=== PATIENT | male | born 1935 | race Caucasian/White ===

== ENCOUNTER 2018-06-24 11:36 | Emergency (ER) | payer OTHER ==
[2018-06-24 12:46] VITALS: TEMP 98.1; BMI 24.5
[2018-06-24] MEDS ORDERED: SODIUM CHLORIDE 1,000 ML IV STA (13:18)
[2018-06-24 14:00] LABS: BASO % 0.5 % (0-2.0); EOS % 2.8 % (0-4.5); HEMOGLOBIN 14.8 GM/dL (11.7-16.9); LYMPH % 11.9 % (8-40); MCH 34.7 pg (25.7-33.7); MCHC 34.4 g/dl (32.0-35.9); MEAN CELL VOLUME 100.7 fl (80-96); MEAN PLT VOLUME 7.7 fl (7.5-11.1); MONO % 8.4 % (3.8-10.2); NEUT % 76.4 % (42.8-82.8); PLATELET COUNT 475 K/MM3 (134-434); RBC 4.27 M/mm3 (4.00-5.60); RDW 13.5 % (11.9-15.9); WHITE BLOOD COUNT 12.8 K/mm3 (4.0-10.0)
[2018-06-24 14:24] LABS: URINE APPEARANCE CLOUDY; URINE BILIRUBIN NEGATIVE (<2.0 mg/dL); URINE COLOR YELLOW; URINE GLUCOSE (UA) NEGATIVE (NEGATIVE); URINE KETONE NEGATIVE (NEGATIVE); URINE LEUK ESTERASE 3+ (NEGATIVE); URINE NITRITE NEGATIVE (NEGATIVE); URINE PROTEIN 2+ (NEGATIVE); URINE UROBILINOGEN NEGATIVE mg/dL (0.2-1.0)
[2018-06-24 15:12] LABS: ANION GAP 6 MMOL/L (8-16); BLOOD UREA NITROGEN 14 mg/dL (7-18); CHLORIDE 104 mmol/L (98-107); CO2 28 mmol/L (21-32); CREATININE 0.8 mg/dL (0.55-1.3); GLUCOSE,RANDOM 73 mg/dL (74-106); POTASSIUM 4.9 mmol/L (3.5-5.1); SODIUM 139 mmol/L (136-145)
--- NOTE | 2018-06-24 15:12 | PDOC ---
History of Present Illness - General Chief Complaint: Hematuria Stated Complaint: BLOOD IN URINE Time Seen by Provider: 06/24/18 12:27 History Source: Patient Exam Limitations: Language Barrier - History of Present Illness Initial Comments: 82 y/o M hx of stomach cancer (several years ago, treated with chemo and surgery , in remission), cholecystectomy (several years ago), HTN presents with hematuria he noted today along with very mild RLQ abdominal discomfort. Denies fever, chills, sob, cp, n/v/d, dysuria, difficulty urinating, urinary urgency/ frequency. 06/24/18 15:07 Past History - Past Medical History Allergies/Adverse Reactions: Allergies Allergy/AdvReac Type Severity Reaction Status Date / Time No Known Allergies Allergy Verified 06/24/18 12:22 Home Medications: Ambulatory Orders Aspirin Coated [Ecotrin -] 81 mg PO DAILY 03/31/14 Lisinopril [Prinivil -] 30 mg PO DAILY 03/31/14 levoFLOXacin [Levaquin] 750 mg PO DAILY #5 tab 06/24/18 Cancer: Yes (STOMACH) Cardiac Disorders: Yes COPD: No CHF: No HTN: Yes - Surgical History Cholecystectomy: Yes - Immunization History Immunization Up to Date: Yes - Suicide/Smoking/Psychosocial Hx Smoking Status: No Smoking History: Never smoked Have you smoked in the past 12 months: No Number of Cigarettes Smoked Daily: 0 If you are a former smoker, when did you quit?: 30 YEARS Information on smoking cessation initiated: No Hx Alcohol Use: Yes (daily glass of wine) Drug/Substance Use Hx: No Substance Use Type: None Review of Systems - Review of Systems Comments:: See HPI 06/24/18 15:10 *Physical Exam - Vital Signs Last Vital Signs Temp Pulse Resp BP Pulse Ox 98.1 F 77 18 155/71 100 06/24/18 11:36 06/24/18 11:36 06/24/18 11:36 06/24/18 11:36 06/24/18 11:36 - Physical Exam General Appearance: No: Apparent Distress Respiratory/Chest: positive: Lungs Clear, Normal Breath Sounds. negative: Respiratory Distress Cardiovascular: positive: Regular Rhythm, Regular Rate, S1, S2. negative: Murmur Gastrointestinal/Abdominal: positive: Normal Bowel Sounds, Soft. negative: Tender, Distended, Guarding, Rebound, Mass Musculoskeletal: negative: CVA Tenderness Integumentary: positive: Normal Color Neurologic: positive: Fully Oriented, Alert, Normal Mood/Affect ED Treatment Course - LABORATORY CBC & Chemistry Diagram: 06/24/18 13:40 06/24/18 13:40 - ADDITIONAL ORDERS Additional order review: Laboratory Results 06/24/18 13:40 Urine Color Yellow Urine Appearance Cloudy Urine pH 6.0 Ur Specific [place] 1.012 Urine Protein 2+ H Urine Glucose (UA) Negative Urine Ketones Negative Urine Blood 3+ H Urine Nitrite Negative Urine Bilirubin Negative Urine Urobilinogen Negative Ur Leukocyte Esterase 3+ H 06/24/18 13:40 RBC 4.27 MCV 100.7 H MCHC 34.4 RDW 13.5 MPV 7.7 D Neutrophils % 76.4 D Lymphocytes % 11.9 D Monocytes % 8.4 Eosinophils % 2.8 Basophils % 0.5 - Medications Given in the ED: ED Medications Discontinued Medications Generic Name Dose Route Start Last Admin Trade Name Freq PRN Reason Stop Dose Admin Sodium Chloride 1,000 mls @ 1,000 mls/hr 06/24/18 13:18 06/24/18 14:21 Normal Saline - IV 06/24/18 14:17 1,000 mls/hr ASDIR STA Administration Medical Decision Making - Medical Decision Making 82 y/o M hx of stomach CA, cholecystectomy, HTN presents with hematuria x 1 day. Consider UTI; also consider bladder CA given painless hematuria. Less suspicious for kidney stones given how comfortable patient appears and with no CVA tenderness. Unlikely pyelo with no fever. Of note, patient was seen 05/2014 for hematuria as well; at that time, he was diagnosed with UTI and treated with Cipro. UCx, however, was negative. Plan: CBC, BMP, UA, UCX, possible uro consult 06/24/18 15:10 Labs with mild leukocytosis of 12.8 UA shows 3+ leuks, 3+ blood Discussed with urology, Dr. Ruiz, who recommended dose of IV abx for now and discharging on Levaquin with outpatient urology follow-up No current indications for CBI given patient with no difficulty voiding and not distended Will give patient dose of IV Ceftriaxone and refer patient to Dr. Ruiz New rx: Levaquin 06/24/18 15:37 *DC/Admit/Observation/Transfer Diagnosis at time of Disposition: Hematuria - Discharge Dispostion Disposition: HOME Condition at time of disposition: Good Decision to Admit order: No - Prescriptions Prescriptions: levoFLOXacin [Levaquin] 750 mg PO DAILY #5 tab - Referrals Referrals: Delon Schmid MD [Primary Care Provider] - 3 days Jon Ruiz MD., MD [Staff Physician] - 3 days - Patient Instructions Printed Discharge Instructions: DI for Hematuria Additional Instructions: Thank you for choosing [facility]. It was a pleasure taking care of you. You were seen here for blood in the urine We are starting you on an antibiotic, Levaquin, in case this is due to possible infection However, you will need further work-up on the cause of the blood in your urine, for which you were referred to the urologist Dr. Ruiz Return to the Emergency Department if your symptoms worsen or persist, you have fever, shortness of breath, chest pain, severe abdominal pain, vomiting, abdomen becomes very distended, have difficulty producing urine or are no longer producing urine or other concerning symptoms. - Post Discharge Activity
[2018-06-24] MEDS ORDERED: CEFTRIAXONE 1,000 MG in DEXTROSE 5%-WATER - 50 ML IVPB ONE (15:28)
[2018-06-24 15:50] VITALS: BP 159/83; PULSE 84
[2018-06-24] MEDS ORDERED: CEFTRIAXONE 1 GM/50 ML BAG ONE (15:54)
== END 2018-06-24 16:05 | disposition home or self-care (01) ==
LOC: JER 11:36
PROC: 3E0337Z Introduction of Electrolytic and Water Balance Substance into Peripheral Vein, Percutaneous Approach (ICD-10-PCS; principal; 2018-06-24)
PROC: 3E03329 Introduction of Other Anti-infective into Peripheral Vein, Percutaneous Approach (ICD-10-PCS; 2018-06-24)
DX: R31.9 Hematuria, unspecified (principal); Z85.028 Personal history of other malignant neoplasm of stomach
CPT/HCPCS: 36415; 80048; 81003; 81015; 85025; 87077; 87086; 96361; 96365; 99282-25; J7030

== ENCOUNTER 2021-07-29 10:07 | Inpatient (IN) | payer OTHER ==
[2021-07-29] MEDS ORDERED: SODIUM CHLORIDE 1,905 ML IV ONE (11:12)
[2021-07-29] MEDS ORDERED: ACETAMINOPHEN 1000 MG/100 ML BAG IVPB ONE (11:15)
[2021-07-29] MEDS ORDERED: PIPERACILLIN/TAZOB 4.5 GM 4.5 GM in DEXTROSE 5%-WATER - 100 ML IVPB ONE (11:15)
[2021-07-29] MEDS ORDERED: VANCOMYCIN 1,000 MG in DEXTROSE 5%-WATER - 250 ML IVPB ONE (11:15)
[2021-07-29] MEDS ORDERED: SODIUM CHLORIDE 0.9% 1000 ML INFUS.BAG IV ONE (12:01)
[2021-07-29] MEDS ORDERED: ACETAMINOPHEN INJECTION 100 ML IVPB ONE (12:12)
[2021-07-29] MEDS ORDERED: VANCOMYCIN 500 MG VIAL (RESTRICTED TO ID ONLY) ONE (12:12)
[2021-07-29 12:41] LABS: MCH 33.3 pg (25.7-33.7); MCHC 34.4 g/dl (32.0-35.9); MEAN CELL VOLUME 96.9 fl (80-96); MEAN PLT VOLUME 7.4 fl (7.5-11.1); PLATELET COUNT 377 10^3/uL (134-434); RBC 3.61 M/mm3 (4.00-5.60); RDW 13.3 % (11.9-15.9); WHITE BLOOD COUNT 24.5 K/mm3 (4.0-10.0)
[2021-07-29 12:53] LABS: INR 1.2 (0.83-1.09); PROTHROMBIN TIME (PATIENT) 13.5 SEC (9.7-13.0)
[2021-07-29 12:56] LABS: ACTIVATED PTT 22.7 SECONDS (25.2-36.5)
[2021-07-29 13:06] LABS: ANISOCYTOSIS 0; HELMET CELLS 0; HOWELL-JOLLY BODIES 0; MACROCYTOSIS 0; OVALOCYTE 0; PLATELET ESTIMATE NORMAL; ROULEAU 0; SICKELED CELLS 0; TARGET CELLS 0; TEAR DROP CELLS 0; TOXIC GRANULATION 0
[2021-07-29 13:07] LABS: CHLORIDE 104 mmol/L (98-107); SODIUM 136 mmol/L (136-145)
[2021-07-29 13:09] LABS: CALCIUM 8.7 mg/dL (8.5-10.1)
[2021-07-29 13:10] LABS: ANION GAP 4 MMOL/L (8-16); BLOOD UREA NITROGEN 13.8 mg/dL (7-18); CO2 28 mmol/L (21-32); GLUCOSE,RANDOM 116 mg/dL (74-106)
[2021-07-29 13:12] LABS: CREATININE 1.1 mg/dL (0.55-1.3); SGOT/AST 16 U/L (15-37); SGPT/ALT 17 U/L (13-61)
[2021-07-29 13:14] LABS: BILIRUBIN,TOTAL 0.8 mg/dL (0.2-1); TOT PROT 6.3 g/dl (6.4-8.2)
[2021-07-29 13:16] LABS: ALK PHOS 95 U/L (45-117)
[2021-07-29 13:20] LABS: ALBUMIN 3.2 g/dl (3.4-5.0)
[2021-07-29] MEDS ORDERED: PIPERACILLIN/TAZOB 4.5 GM 4.5 GM/100 ML BAG IVPB ONE (13:36)
[2021-07-29 15:21] LABS: EPI CELLS 15 /uL (0-25.1); HYALINE CASTS 4 /uL (0-3.1); PH,URINE 5.5 (5.0-8.0); URINE APPEARANCE CLOUDY; URINE BACTERIA 3229 /uL (0-1359); URINE BILIRUBIN NEGATIVE (NEGATIVE); URINE COLOR YELLOW; URINE GLUCOSE (UA) NEGATIVE (NEGATIVE); URINE KETONE NEGATIVE (NEGATIVE); URINE LEUK ESTERASE 3+ (NEGATIVE); URINE NITRITE NEGATIVE (NEGATIVE); URINE PROTEIN 1+ (NEGATIVE); URINE RBC 50 /uL (0-23.9); URINE UROBILINOGEN 0.2 mg/dL (0.2-1.0); URINE WBC 675 /uL (0-25.8)
[2021-07-29] MEDS ORDERED: LIDOCAINE HCL 2% JELLY 10 ML CARTRIDGE ONE (17:43)
[2021-07-29] MEDS ORDERED: PIPERACILLIN/TAZOB 4.5 GM 4.5 GM in DEXTROSE 5%-WATER 100 ML IVPB SCH (18:00)
[2021-07-29] MEDS: TAMSULOSIN HCL 0.4 MG CAP PO SCH (21:33)
[2021-07-30 00:04] VITALS: BMI 24.7
[2021-07-30] MEDS ORDERED: PIPERACILLIN/TAZOBACTAM 4.5 GM VIAL IVPB ONE ×2 (02:28→13:59)
[2021-07-30] MEDS ORDERED: DEXTROSE 5%-WATER 100 ML IVPB ONE ×3 (02:28→21:20)
[2021-07-30] MEDS ORDERED: LISINOPRIL PO SCH (10:00)
[2021-07-30] MEDS ORDERED: LISINOPRIL 20 MG TABLET PO SCH (10:00)
[2021-07-30] MEDS ORDERED: PIPERACILLIN/TAZOB 4.5 GM 4.5 GM in DEXTROSE 5%-WATER 100 ML IVPB SCH (10:00)
[2021-07-30 10:14] LABS: BASO % 0.4 % (0-2.0); EOS % 0.2 % (0-4.5); HEMATOCRIT 35.4 % (35.4-49); HEMOGLOBIN 12.2 GM/dL (11.7-16.9); LYMPH % 8.4 % (8-40); MCH 33.4 pg (25.7-33.7); MCHC 34.4 g/dl (32.0-35.9); MEAN PLT VOLUME 7.4 fl (7.5-11.1); MONO % 7.4 % (3.8-10.2); NEUT % 83.6 % (42.8-82.8); PLATELET COUNT 369 10^3/uL (134-434); RBC 3.65 M/mm3 (4.00-5.60); RDW 12.8 % (11.9-15.9)
[2021-07-30 10:37] LABS: CALCIUM 8.6 mg/dL (8.5-10.1)
[2021-07-30 10:38] LABS: BLOOD UREA NITROGEN 10.8 mg/dL (7-18)
[2021-07-30 10:40] LABS: BILIRUBIN,TOTAL 0.7 mg/dL (0.2-1); TOT PROT 5.8 g/dl (6.4-8.2)
[2021-07-30] MEDS: ENOXAPARIN NA (PORCINE) 40 MG/0.4 ML DISP.SYRIN SQ SCH (10:46)
[2021-07-30] MEDS: TAMSULOSIN HCL 0.4 MG CAP PO SCH ×2 (10:46→21:43)
[2021-07-30] MEDS: ASPIRIN COATED 81 MG TABLET.EC PO SCH (10:46)
[2021-07-30 10:49] LABS: ALBUMIN 2.9 g/dl (3.4-5.0)
[2021-07-30] MEDS ORDERED: PIPERACILLIN/TAZOB 4.5 GM 4.5 GM in DEXTROSE 5%-WATER 100 ML IVPB ONE (11:35)
[2021-07-30] MEDS: FINASTERIDE 5 MG TABLET (FP) PO SCH (14:03)
[2021-07-30] MEDS ORDERED: PIPERACILLIN/TAZOB 3.375 GM 3.375 GM in DEXTROSE 5%-WATER - 50 ML IVPB SCH (18:00)
[2021-07-30] MEDS ORDERED: PIPERACILLIN/TAZOBACTAM 3.375 GM VIAL IVPB ONE (18:02)
[2021-07-30] MEDS ORDERED: DEXTROSE 5%-WATER - 50 ML IVPB ONE (18:02)
[2021-07-30] MEDS: CEFTRIAXONE 2 GM in DEXTROSE 5%-WATER 2 GM/100 ML BAG IVPB SCH (21:44)
[2021-07-31] MEDS ORDERED: MELATONIN 1 MG TABLET PO ONE ×2 (00:55→05:45)
[2021-07-31] MEDS ORDERED: LORazepam 2 MG/ML SDV VIAL ONE (01:14)
[2021-07-31] MEDS ORDERED: LORazepam 2 MG/ML SDV VIAL IVPUSH ONE (01:34)
[2021-07-31] MEDS ORDERED: DEXTROSE 5%-WATER 100 ML IVPB ONE (09:41)
[2021-07-31] MEDS: TAMSULOSIN HCL 0.4 MG CAP PO SCH ×2 (09:43→21:24)
[2021-07-31] MEDS: ASPIRIN COATED 81 MG TABLET.EC PO SCH (09:43)
[2021-07-31] MEDS: ENOXAPARIN NA (PORCINE) 40 MG/0.4 ML DISP.SYRIN SQ SCH (09:43)
[2021-07-31] MEDS: CEFTRIAXONE 2 GM in DEXTROSE 5%-WATER 2 GM/100 ML BAG IVPB SCH (09:43)
[2021-07-31] MEDS: FINASTERIDE 5 MG TABLET (FP) PO SCH (09:43)
[2021-07-31] MEDS: LISINOPRIL 5 MG TABLET PO SCH (09:44)
[2021-08-01] MEDS: LORazepam 2 MG/ML SDV VIAL IVPUSH PRN ×2 (00:22→17:19)
[2021-08-01 10:27] LABS: BASO % 0.1 % (0-2.0); EOS % 0.1 % (0-4.5); HEMATOCRIT 38.3 % (35.4-49); HEMOGLOBIN 12.5 GM/dL (11.7-16.9); LYMPH % 8.7 % (8-40); MCH 31.7 pg (25.7-33.7); MCHC 32.7 g/dl (32.0-35.9); MEAN CELL VOLUME 97.2 fl (80-96); MEAN PLT VOLUME 7.8 fl (7.5-11.1); MONO % 9.9 % (3.8-10.2); NEUT % 81.2 % (42.8-82.8); PLATELET COUNT 400 10^3/uL (134-434); RBC 3.95 M/mm3 (4.00-5.60); WHITE BLOOD COUNT 14.1 K/mm3 (4.0-10.0)
[2021-08-01] MEDS ORDERED: DEXTROSE 5%-WATER - 50 ML IVPB ONE (10:41)
[2021-08-01] MEDS ORDERED: cefTRIAXone SODIUM 1 GM VIAL ONE (10:41)
[2021-08-01 10:42] LABS: ALBUMIN 2.6 g/dl (3.4-5.0); BLOOD UREA NITROGEN 12.6 mg/dL (7-18); CALCIUM 8.6 mg/dL (8.5-10.1)
[2021-08-01 10:45] LABS: CREATININE 0.8 mg/dL (0.55-1.3)
[2021-08-01 10:48] LABS: BILIRUBIN,TOTAL 0.5 mg/dL (0.2-1); TOT PROT 6.2 g/dl (6.4-8.2)
[2021-08-01] MEDS: FINASTERIDE 5 MG TABLET (FP) PO SCH (10:51)
[2021-08-01] MEDS: CEFTRIAXONE 1 GM in DEXTROSE 5%-WATER - 50 ML IVPB SCH (10:51)
[2021-08-01] MEDS: LISINOPRIL 5 MG TABLET PO SCH (10:51)
[2021-08-01] MEDS: ASPIRIN COATED 81 MG TABLET.EC PO SCH (10:51)
[2021-08-01] MEDS: ENOXAPARIN NA (PORCINE) 40 MG/0.4 ML DISP.SYRIN SQ SCH (10:52)
[2021-08-01] MEDS: TAMSULOSIN HCL 0.4 MG CAP PO SCH ×2 (10:52→21:08)
[2021-08-02] MEDS: LORazepam 2 MG/ML SDV VIAL IVPUSH PRN ×2 (05:14→18:17)
[2021-08-02] MEDS ORDERED: DEXTROSE 5%-WATER - 50 ML IVPB ONE (09:09)
[2021-08-02] MEDS ORDERED: cefTRIAXone SODIUM 1 GM VIAL ONE (09:09)
[2021-08-02] MEDS: CEFTRIAXONE 1 GM in DEXTROSE 5%-WATER - 50 ML IVPB SCH (09:17)
[2021-08-02] MEDS: ACETAMINOPHEN 325 MG TABLET (FP) PO PRN (09:18)
[2021-08-02] MEDS: FINASTERIDE 5 MG TABLET (FP) PO SCH (09:19)
[2021-08-02] MEDS: ENOXAPARIN NA (PORCINE) 40 MG/0.4 ML DISP.SYRIN SQ SCH (09:19)
[2021-08-02] MEDS: LISINOPRIL 5 MG TABLET PO SCH (09:19)
[2021-08-02] MEDS: ASPIRIN COATED 81 MG TABLET.EC PO SCH (09:19)
[2021-08-02] MEDS: TAMSULOSIN HCL 0.4 MG CAP PO SCH ×2 (09:19→21:02)
[2021-08-02] MEDS: QUEtiapine FUMARATE 25 MG TABLET PO SCH ×2 (12:36→21:02)
[2021-08-03 09:49] LABS: HEMATOCRIT 37.3 % (35.4-49); HEMOGLOBIN 12.5 GM/dL (11.7-16.9); MCH 32.4 pg (25.7-33.7); MCHC 33.5 g/dl (32.0-35.9); MEAN CELL VOLUME 96.8 fl (80-96); MEAN PLT VOLUME 7.6 fl (7.5-11.1); PLATELET COUNT 444 10^3/uL (134-434); RBC 3.86 M/mm3 (4.00-5.60); WHITE BLOOD COUNT 12.7 K/mm3 (4.0-10.0)
[2021-08-03] MEDS ORDERED: cefTRIAXone SODIUM 1 GM VIAL ONE (09:54)
[2021-08-03] MEDS ORDERED: DEXTROSE 5%-WATER - 50 ML IVPB ONE (09:55)
[2021-08-03] MEDS: ENOXAPARIN NA (PORCINE) 40 MG/0.4 ML DISP.SYRIN SQ SCH (09:59)
[2021-08-03] MEDS: CEFTRIAXONE 1 GM in DEXTROSE 5%-WATER - 50 ML IVPB SCH (09:59)
[2021-08-03] MEDS: FINASTERIDE 5 MG TABLET (FP) PO SCH (10:00)
[2021-08-03] MEDS: TAMSULOSIN HCL 0.4 MG CAP PO SCH ×2 (10:00→21:54)
[2021-08-03] MEDS: ASPIRIN COATED 81 MG TABLET.EC PO SCH (10:00)
[2021-08-03] MEDS: LISINOPRIL 5 MG TABLET PO SCH (10:00)
[2021-08-03] MEDS: QUEtiapine FUMARATE 25 MG TABLET PO SCH ×2 (10:00→21:54)
[2021-08-04] MEDS: ENOXAPARIN NA (PORCINE) 40 MG/0.4 ML DISP.SYRIN SQ SCH (09:05)
[2021-08-04] MEDS: LISINOPRIL 5 MG TABLET PO SCH (09:05)
[2021-08-04] MEDS: FINASTERIDE 5 MG TABLET (FP) PO SCH (09:05)
[2021-08-04] MEDS: QUEtiapine FUMARATE 25 MG TABLET PO SCH ×2 (09:05→21:11)
[2021-08-04] MEDS: TAMSULOSIN HCL 0.4 MG CAP PO SCH ×2 (09:05→21:11)
[2021-08-04] MEDS: ASPIRIN COATED 81 MG TABLET.EC PO SCH (09:05)
[2021-08-04] MEDS ORDERED: cefTRIAXone SODIUM 1 GM VIAL ONE ×2 (09:06→09:33)
[2021-08-04] MEDS ORDERED: DEXTROSE 5%-WATER - 50 ML IVPB ONE ×2 (09:07→09:33)
[2021-08-04] MEDS: CEFTRIAXONE 1 GM in DEXTROSE 5%-WATER - 50 ML IVPB SCH (09:08)
[2021-08-04 11:31] LABS: BASO % 0.4 % (0-2.0); HEMATOCRIT 36.3 % (35.4-49); LYMPH % 9.7 % (8-40); MCH 31.9 pg (25.7-33.7); MEAN CELL VOLUME 96.6 fl (80-96); MEAN PLT VOLUME 7.4 fl (7.5-11.1); MONO % 10.6 % (3.8-10.2); NEUT % 78.3 % (42.8-82.8); PLATELET COUNT 483 10^3/uL (134-434); RBC 3.76 M/mm3 (4.00-5.60); WHITE BLOOD COUNT 12.9 K/mm3 (4.0-10.0)
[2021-08-04 11:55] LABS: CALCIUM 8.5 mg/dL (8.5-10.1)
[2021-08-04 11:56] LABS: ALBUMIN 2.5 g/dl (3.4-5.0); BLOOD UREA NITROGEN 16.5 mg/dL (7-18)
[2021-08-04 12:01] LABS: BILIRUBIN,TOTAL 0.7 mg/dL (0.2-1)
[2021-08-04] MEDS: ACETAMINOPHEN 325 MG TABLET (FP) PO PRN ×2 (13:15→21:46)
[2021-08-04] MEDS: CEPHALEXIN MONOHYDRATE 500 MG CAPSULE (UD) PO SCH (21:11)
[2021-08-05] MEDS ORDERED: PT OWN MED DRAWER 7, Y5N ONE (08:06)
[2021-08-05] MEDS: ENOXAPARIN NA (PORCINE) 40 MG/0.4 ML DISP.SYRIN SQ SCH (10:57)
[2021-08-05] MEDS: ASPIRIN COATED 81 MG TABLET.EC PO SCH (10:57)
[2021-08-05] MEDS: TAMSULOSIN HCL 0.4 MG CAP PO SCH ×3 (10:57→21:03)
[2021-08-05] MEDS: CEPHALEXIN MONOHYDRATE 500 MG CAPSULE (UD) PO SCH ×3 (10:57→21:03)
[2021-08-05] MEDS: QUEtiapine FUMARATE 25 MG TABLET PO SCH ×3 (10:58→21:03)
[2021-08-05] MEDS: ACETAMINOPHEN 325 MG TABLET (FP) PO PRN ×2 (10:58→20:48)
[2021-08-05] MEDS: LISINOPRIL 5 MG TABLET PO SCH (10:58)
[2021-08-05] MEDS: FINASTERIDE 5 MG TABLET (FP) PO SCH (10:58)
[2021-08-05] MEDS: valACYclovir HCL 500 MG TABLET (FP) PO SCH ×3 (14:56→21:03)
[2021-08-06] MEDS ORDERED: LORazepam 2 MG/ML SDV VIAL IM ONE (02:28)
[2021-08-06] MEDS: CEPHALEXIN MONOHYDRATE 500 MG CAPSULE (UD) PO SCH ×2 (08:41→09:32)
[2021-08-06] MEDS: TAMSULOSIN HCL 0.4 MG CAP PO SCH ×2 (08:42→09:32)
[2021-08-06] MEDS: ASPIRIN COATED 81 MG TABLET.EC PO SCH ×2 (08:42→09:31)
[2021-08-06] MEDS: QUEtiapine FUMARATE 25 MG TABLET PO SCH ×2 (08:42→09:32)
[2021-08-06] MEDS: ACETAMINOPHEN 325 MG TABLET (FP) PO PRN (08:42)
[2021-08-06] MEDS: ENOXAPARIN NA (PORCINE) 40 MG/0.4 ML DISP.SYRIN SQ SCH ×2 (08:42→09:32)
[2021-08-06] MEDS: LISINOPRIL 5 MG TABLET PO SCH ×2 (08:42→09:32)
[2021-08-06] MEDS: FINASTERIDE 5 MG TABLET (FP) PO SCH ×2 (08:42→09:32)
[2021-08-06] MEDS: valACYclovir HCL 500 MG TABLET (FP) PO SCH ×2 (08:42→09:32)
[2021-08-06 11:04] VITALS: BP 112/65; PULSE 95; TEMP 97.5
== END 2021-08-06 16:31 | disposition home or self-care (01) | DRG 871 ==
LOC: JER 10:07 → JERBED 11:15 → J6S 18:52
PROVIDERS: ADMIT Internal Medicine; ATTEND Internal Medicine
DX: A41.89 Other specified sepsis (principal); G93.41 Metabolic encephalopathy; N20.1 Calculus of ureter; N39.0 Urinary tract infection, site not specified; I45.10 Unspecified right bundle-branch block; R65.20 Severe sepsis without septic shock; I10 Essential (primary) hypertension; D72.829 Elevated white blood cell count, unspecified; N40.1 Benign prostatic hyperplasia with lower urinary tract symptoms; R33.8 Other retention of urine; N35.919 Unspecified urethral stricture, male, unspecified site; Z85.028 Personal history of other malignant neoplasm of stomach
CPT/HCPCS: 36415; 71045-TC-FY; 73030-TC-LT-FY; 74177-TC; 80053; 81003; 83605; 84484; 85025; 85027; 85610; 85730; 87040; 87086; 87804; 93005; 93010; 97116-GP; 97162-GP; 99285-25; C9803-CS; Q9967; U0003; U0005

== ENCOUNTER 2022-12-21 15:44 | Emergency (ER) | payer OTHER ==
[2022-12-21 16:09] VITALS: TEMP 98.6; BMI 22.8
[2022-12-21] MEDS ORDERED: IBUPROFEN 400 MG TABLET (FP) PO ONE (18:16)
[2022-12-21 18:29] LABS: BASO % 0.4 % (0-2.0); HEMATOCRIT 37.8 % (35.4-49); HEMOGLOBIN 12.7 GM/dL (11.7-16.9); LYMPH % 15.2 % (8-40); MCH 32.4 pg (25.7-33.7); MCHC 33.6 g/dl (32.0-35.9); MEAN CELL VOLUME 96.4 fl (80-96); MONO % 7.3 % (3.8-10.2); NEUT % 77.1 % (42.8-82.8); PLATELET COUNT 442 10^3/uL (134-434); RBC 3.92 M/mm3 (4.00-5.60); RDW 13.2 % (11.9-15.9); WHITE BLOOD COUNT 13.2 K/mm3 (4.0-10.0)
[2022-12-21 19:01] LABS: POTASSIUM 4.5 mmol/L (3.5-5.1)
[2022-12-21 19:03] LABS: ALBUMIN 2.1 g/dl (3.4-5.0); BLOOD UREA NITROGEN 8.4 mg/dL (7-18); CALCIUM 8.1 mg/dL (8.5-10.1)
[2022-12-21 19:06] LABS: CREATININE 0.9 mg/dL (0.55-1.3)
[2022-12-21 19:09] LABS: BILIRUBIN,TOTAL 0.4 mg/dL (0.2-1); TOT PROT 5.7 g/dl (6.4-8.2)
[2022-12-21] MEDS ORDERED: AZITHROMYCIN 250 MG TABLET PO ONE (19:36)
[2022-12-21] MEDS ORDERED: AZITHROMYCIN 500 MG TABLET ONE (19:38)
[2022-12-21 19:46] VITALS: BP 144/78; PULSE 72; RESP 18
== END 2022-12-21 19:46 | disposition home or self-care (01) ==
LOC: JER 15:44
DX: R51.9 Headache, unspecified (principal); R91.8 Other nonspecific abnormal finding of lung field; J18.1 Lobar pneumonia, unspecified organism; I31.39 Other pericardial effusion (noninflammatory); W01.0XXA Fall on same level from slipping, tripping and stumbling without subsequent striking against object, initial encounter; Y93.01 Activity, walking, marching and hiking; Y92.480 Sidewalk as the place of occurrence of the external cause; Z20.822 Contact with and (suspected) exposure to COVID-19
CPT/HCPCS: 0241U-QW; 36415; 70450-TC; 70486-TC; 71045-TC-FY; 71250-TC; 72125-TC; 80053; 85025; 99285-25

== ENCOUNTER 2023-03-29 15:34 | Emergency (ER) | payer OTHER ==
[2023-03-29 15:51] VITALS: BP 121/58; PULSE 85; RESP 18; TEMP 99.6; BMI 24.7
[2023-03-29 17:37] LABS: BASO % 0.5 % (0-2.0); EOS % 0.4 % (0-4.5); HEMATOCRIT 37.4 % (35.4-49); HEMOGLOBIN 12.6 GM/dL (11.7-16.9); MCH 32.7 pg (25.7-33.7); MCHC 33.6 g/dl (32.0-35.9); MEAN CELL VOLUME 97.3 fl (80-96); MEAN PLT VOLUME 7.4 fl (7.5-11.1); NEUT % 78.1 % (42.8-82.8); PLATELET COUNT 467 10^3/uL (134-434); RBC 3.85 M/mm3 (4.00-5.60); RDW 13.6 % (11.9-15.9); WHITE BLOOD COUNT 17.3 K/mm3 (4.0-10.0)
[2023-03-29 17:57] LABS: POTASSIUM 4.9 mmol/L (3.5-5.1)
[2023-03-29 17:59] LABS: CALCIUM 8.6 mg/dL (8.5-10.1)
[2023-03-29 18:00] LABS: ALBUMIN 2.4 g/dl (3.4-5.0); BLOOD UREA NITROGEN 12.1 mg/dL (7-18)
[2023-03-29 18:03] LABS: CREATININE 0.9 mg/dL (0.55-1.3)
[2023-03-29 18:05] LABS: BILIRUBIN,TOTAL 0.3 mg/dL (0.2-1); TOT PROT 6.1 g/dl (6.4-8.2)
[2023-03-29] MEDS ORDERED: AZITHROMYCIN IVPB 500 MG in DEXTROSE 5%-WATER - 250 ML IVPB ONE (18:48)
[2023-03-29] MEDS ORDERED: CEFTRIAXONE 1 GM/50 ML BAG ONE ×2 (18:59→19:36)
[2023-03-29] MEDS ORDERED: AZITHROMYCIN IVPB 500 MG/250 ML BAG IVPB ONE (19:36)
[2023-03-29] MEDS ORDERED: ACETAMINOPHEN 1000 MG/100 ML BAG IVPB ONE (19:54)
[2023-03-29] MEDS ORDERED: ACETAMINOPHEN 500 MG TABLET (FP) PO ONE (20:26)
[2023-03-29] MEDS ORDERED: AZITHROMYCIN 250 MG TABLET PO ONE (20:29)
[2023-03-29] MEDS ORDERED: AZITHROMYCIN 500 MG TABLET ONE (20:36)
[2023-03-29] MEDS ORDERED: ACETAMINOPHEN 325 MG TABLET (FP) ONE (20:36)
== END 2023-03-29 20:59 | disposition home or self-care (01) ==
LOC: JER 15:34
DX: R22.0 Localized swelling, mass and lump, head (principal); R22.41 Localized swelling, mass and lump, right lower limb; R55 Syncope and collapse; R05.9 Cough, unspecified; R50.9 Fever, unspecified; W01.198A Fall on same level from slipping, tripping and stumbling with subsequent striking against other object, initial encounter
CPT/HCPCS: 36415; 70450-TC; 71045-TC-FY; 72125-TC; 73030-TC-LT-FY; 80053; 84484; 85025; 93005; 93010; 99285-25

== ENCOUNTER 2023-08-28 03:12 | Emergency (ER) | payer OTHER ==
[2023-08-28 05:09] VITALS: BP 138/71; PULSE 64; RESP 19; TEMP 97.9
[2023-08-28 05:14] VITALS: BMI 25.6
[2023-08-28 05:22] LABS: EPI CELLS 13 /uL (0-25.1); HYALINE CASTS 2 /uL (0-3.1); PH,URINE 6.5 (5.0-8.0); URINE APPEARANCE TURBID; URINE BACTERIA 426 /uL (0-1359); URINE BILIRUBIN NEGATIVE (NEGATIVE); URINE COLOR YELLOW; URINE GLUCOSE (UA) NEGATIVE (NEGATIVE); URINE KETONE NEGATIVE (NEGATIVE); URINE LEUK ESTERASE 3+ (NEGATIVE); URINE NITRITE NEGATIVE (NEGATIVE); URINE PROTEIN TRACE (NEGATIVE); URINE RBC 56 /uL (0-23.9); URINE WBC 3858 /uL (0-25.8)
[2023-08-28] MEDS ORDERED: SULFAMETHOXAZOLE/TRIMETHOPRIM 800MG/160MG D.S. TABLET PO ONE (05:25)
[2023-08-28 05:36] LABS: BASO % 1.1 % (0-2.0); EOS % 8.1 % (0-4.5); HEMATOCRIT 38.1 % (35.4-49); HEMOGLOBIN 12.7 GM/dL (11.7-16.9); MCHC 33.3 g/dl (32.0-35.9); MEAN PLT VOLUME 6.8 fl (7.5-11.1); MONO % 11.9 % (3.8-10.2); NEUT % 46.9 % (42.8-82.8); PLATELET COUNT 517 10^3/uL (134-434); RBC 3.85 M/mm3 (4.00-5.60); RDW 13.1 % (11.9-15.9); WHITE BLOOD COUNT 12.6 K/mm3 (4.0-10.0)
[2023-08-28] MEDS ORDERED: SULFAMETHOXAZOLE/TRIMETHOPRIM 800MG/160MG D.S. TABLET ONE (05:44)
[2023-08-28 06:00] LABS: POTASSIUM 5.2 mmol/L (3.5-5.1)
[2023-08-28 06:02] LABS: ALBUMIN 2.5 g/dl (3.4-5.0); BLOOD UREA NITROGEN 12.8 mg/dL (7-18); CALCIUM 8.9 mg/dL (8.5-10.1); INR 1.01 (0.83-1.09); PROTHROMBIN TIME (PATIENT) 11.7 SEC (9.7-13.0)
[2023-08-28 06:05] LABS: ACTIVATED PTT 33.2 SECONDS (25.2-36.5)
[2023-08-28 06:07] LABS: BILIRUBIN,TOTAL 0.4 mg/dL (0.2-1); TOT PROT 6.2 g/dl (6.4-8.2)
[2023-08-28 08:08] LABS: YEAST FEW (NEGATIVE)
== END 2023-08-28 07:17 | disposition home or self-care (01) ==
LOC: JER 03:12
DX: M25.551 Pain in right hip (principal); N39.0 Urinary tract infection, site not specified; W18.09XA Striking against other object with subsequent fall, initial encounter; Y92.002 Bathroom of unspecified non-institutional (private) residence as the place of occurrence of the external cause; Y93.01 Activity, walking, marching and hiking
CPT/HCPCS: 36415; 70450-TC; 71045-TC-FY; 72125-TC; 72170-TC-FY; 73552-TC-RT-FY; 80053; 81003; 84484; 85025; 85610; 85730; 93005; 93010; 99285-25

== ENCOUNTER 2024-01-13 15:52 | Observation (INO) | payer OTHER ==
[2024-01-13 17:59] LABS: CHLORIDE 106 mmol/L (98-107); POTASSIUM 4.5 mmol/L (3.5-5.1); SODIUM 136 mmol/L (136-145)
[2024-01-13 18:00] LABS: CALCIUM 8.4 mg/dL (8.5-10.1)
[2024-01-13 18:01] LABS: ANION GAP 5 mmol/L (4-13); BLOOD UREA NITROGEN 12.2 mg/dL (7-18); CO2 24 mmol/L (21-32); GLUCOSE,RANDOM 101 mg/dL (74-106)
[2024-01-13 18:03] LABS: URIC ACID 6.1 mg/dL (2.6-7.2)
[2024-01-13 18:04] LABS: CREATININE 0.9 mg/dL (0.55-1.3)
[2024-01-13 18:05] LABS: BASO % 0.4 % (0-2.0); EOS % 3.7 % (0-4.5); HEMATOCRIT 36.4 % (35.4-49); HEMOGLOBIN 12.2 GM/dL (11.7-16.9); LYMPH % 21.6 % (8-40); MCH 32.9 pg (25.7-33.7); MCHC 33.5 g/dl (32.0-35.9); MEAN CELL VOLUME 98.2 fl (80-96); MEAN PLT VOLUME 6.4 fl (7.5-11.1); MONO % 11.7 % (3.8-10.2); NEUT % 62.6 % (42.8-82.8); PLATELET COUNT 467 10^3/uL (134-434); RBC 3.71 M/mm3 (4.00-5.60); WHITE BLOOD COUNT 15.3 K/mm3 (4.0-10.0)
[2024-01-13] MEDS ORDERED: IBUPROFEN 400 MG TABLET (FP) PO ONE (18:16)
[2024-01-13] MEDS: IBUPROFEN 200 MG TABLET PO ONE (18:22)
[2024-01-13] MEDS ORDERED: PIPERACILLIN/TAZOB 3.375 GM 3.375 GM/50 ML BAG IVPB ONE (18:44)
[2024-01-13] MEDS: PIPERACILLIN/TAZOB 3.375 GM 3.375 GM in DEXTROSE 5%-WATER - 50 ML IVPB ONE (18:53)
[2024-01-13] MEDS ORDERED: VANCOMYCIN 1 GRAM (PRE-DOCKED) 1,000 MG/250 ML BAG IVPB ONE (19:29)
[2024-01-13] MEDS: VANCOMYCIN 1,000 MG in DEXTROSE 5%-WATER - 250 ML IVPB ONE (19:33)
[2024-01-13] MEDS: OLANZapine 2.5 MG TABLET PO ONE (20:22)
[2024-01-14 03:41] VITALS: BMI 24.3
[2024-01-14 05:44] LABS: EPI CELLS 5 /uL (0-25.1); HYALINE CASTS 0 /uL (0-3.1); URINE APPEARANCE CLOUDY; URINE BACTERIA 256 /uL (0-1359); URINE BILIRUBIN NEGATIVE (NEGATIVE); URINE COLOR YELLOW; URINE GLUCOSE (UA) NEGATIVE (NEGATIVE); URINE KETONE NEGATIVE (NEGATIVE); URINE LEUK ESTERASE 3+ (NEGATIVE); URINE NITRITE NEGATIVE (NEGATIVE); URINE PROTEIN 1+ (NEGATIVE); URINE RBC 150 /uL (0-23.9); URINE WBC 2864 /uL (0-25.8)
[2024-01-14 07:38] LABS: YEAST NEGATIVE (NEGATIVE)
[2024-01-14] MEDS: ACETAMINOPHEN 1000 MG/100 ML BAG IVPB PRN (07:54)
[2024-01-14] MEDS: ENOXAPARIN NA (PORCINE) 40 MG/0.4 ML DISP.SYRIN SQ SCH (09:12)
[2024-01-14 09:58] VITALS: BP 152/71; PULSE 86; RESP 20; TEMP 97.8
[2024-01-14] MEDS: CEFTRIAXONE 1 GM in DEXTROSE 5%-WATER - 50 ML IVPB ONE (10:30)
[2024-01-14] MEDS: COLCHICINE 0.6 MG TAB PO ONE (10:30)
[2024-01-14 10:31] LABS: RBC 3.65 M/mm3 (4.00-5.60); WHITE BLOOD COUNT 13.7 K/mm3 (4.0-10.0)
[2024-01-14 10:32] LABS: BASO % 0.3 % (0-2.0); EOS % 4.2 % (0-4.5); HEMATOCRIT 35.4 % (35.4-49); LYMPH % 17.5 % (8-40); MEAN CELL VOLUME 96.9 fl (80-96); MEAN PLT VOLUME 6.7 fl (7.5-11.1); MONO % 10.8 % (3.8-10.2); NEUT % 67.2 % (42.8-82.8); PLATELET COUNT 469 10^3/uL (134-434); RDW 13.2 % (11.9-15.9)
[2024-01-14 10:50] LABS: POTASSIUM 4.4 mmol/L (3.5-5.1)
[2024-01-14 10:54] LABS: BLOOD UREA NITROGEN 11.5 mg/dL (7-18)
[2024-01-14 10:55] LABS: ALBUMIN 2.2 g/dl (3.4-5.0); CALCIUM 8.2 mg/dL (8.5-10.1); MAGNESIUM 1.8 mg/dL (1.8-2.4)
[2024-01-14 10:56] LABS: CHOLESTEROL 96 mg/dL (50-200)
[2024-01-14 10:57] LABS: LDL CHOLESTEROL (ONLY SJRH) 42 mg/dL (5-100)
[2024-01-14 10:58] LABS: CREATININE 0.7 mg/dL (0.55-1.3)
[2024-01-14 10:59] LABS: HDL CHOLESTEROL 54 mg/dL (40-60); PHOSPHOROUS 3.2 mg/dL (2.5-4.9)
[2024-01-14 11:00] LABS: TOT PROT 5.3 g/dl (6.4-8.2)
[2024-01-14 11:01] LABS: BILIRUBIN,TOTAL 0.6 mg/dL (0.2-1)
== END 2024-01-14 13:46 | disposition home or self-care (01) ==
LOC: JER 15:52 → UNDOADMOB 18:57 → INTOOBSV 18:57 → JERBED 18:57 → J5S 01-14 01:25
PROVIDERS: ADMIT Internal Medicine; ATTEND Internal Medicine
PROC: 3E033NZ Introduction of Analgesics, Hypnotics, Sedatives into Peripheral Vein, Percutaneous Approach (ICD-10-PCS; principal; 2024-01-14)
PROC: 3E023GC Introduction of Other Therapeutic Substance into Muscle, Percutaneous Approach (ICD-10-PCS; 2024-01-14)
PROC: 3E03329 Introduction of Other Anti-infective into Peripheral Vein, Percutaneous Approach (ICD-10-PCS; 2024-01-14)
PROC: 3E033GC Introduction of Other Therapeutic Substance into Peripheral Vein, Percutaneous Approach (ICD-10-PCS; 2024-01-14)
DX: M65.9 Synovitis and tenosynovitis, unspecified (principal); G30.9 Alzheimer's disease, unspecified; M10.9 Gout, unspecified; N40.0 Benign prostatic hyperplasia without lower urinary tract symptoms; I10 Essential (primary) hypertension; Z85.028 Personal history of other malignant neoplasm of stomach; Z87.891 Personal history of nicotine dependence; Z90.49 Acquired absence of other specified parts of digestive tract; Z99.3 Dependence on wheelchair
CPT/HCPCS: 0241U-QW; 36415; 73140-TC-LT-FY; 80048; 80053; 80061; 81003; 83036; 83735; 84100; 84550; 85025; 86140; 87040; 93005; 93010; 96365; 96367; 96372; 96375; 99285-25; G0378; J0131

== ENCOUNTER 2024-01-16 21:19 | Emergency (ER) | payer OTHER ==
[2024-01-16 21:40] VITALS: PULSE 84; BMI 30.2
[2024-01-16 22:44] LABS: BASO % 0.6 % (0-2.0); EOS % 3.8 % (0-4.5); HEMATOCRIT 37.3 % (35.4-49); HEMOGLOBIN 12.5 GM/dL (11.7-16.9); LYMPH % 28.9 % (8-40); MCH 32.8 pg (25.7-33.7); MCHC 33.6 g/dl (32.0-35.9); MEAN CELL VOLUME 97.7 fl (80-96); MEAN PLT VOLUME 6.3 fl (7.5-11.1); MONO % 11.1 % (3.8-10.2); NEUT % 55.6 % (42.8-82.8); PLATELET COUNT 464 10^3/uL (134-434); RBC 3.82 M/mm3 (4.00-5.60); RDW 13.2 % (11.9-15.9); WHITE BLOOD COUNT 14.5 K/mm3 (4.0-10.0)
[2024-01-16 22:50] LABS: INR 1.04 (0.83-1.09); PROTHROMBIN TIME (PATIENT) 11.7 SEC (9.7-13.0)
[2024-01-16] MEDS ORDERED: PIPERACILLIN/TAZOB 4.5 GM 4.5 GM/100 ML BAG IVPB ONE (22:52)
[2024-01-16 22:53] LABS: ACTIVATED PTT 28.9 SECONDS (25.2-36.5)
[2024-01-16 22:59] LABS: VENOUS BASE EXCESS 2.3 mmol/L (-2-2); VENOUS O2 SATURATION 60.4 % (70-80); VENOUS PCO2 45.2 mmHg (38-52); VENOUS PH 7.403 (7.310-7.410)
[2024-01-16 23:02] LABS: POTASSIUM 5.2 mmol/L (3.5-5.1)
[2024-01-16 23:04] LABS: CALCIUM 8.5 mg/dL (8.5-10.1)
[2024-01-16 23:05] LABS: ALBUMIN 2.6 g/dl (3.4-5.0); BLOOD UREA NITROGEN 12.4 mg/dL (7-18)
[2024-01-16] MEDS: PIPERACILLIN/TAZOBACTAM 4.5 GM VIAL IVPB ONE (23:08)
[2024-01-16] MEDS: SODIUM CHLORIDE 0.9% 1000 ML INFUS.BAG IV STA (23:08)
[2024-01-16 23:09] LABS: BILIRUBIN,TOTAL 0.5 mg/dL (0.2-1)
[2024-01-16 23:10] LABS: EPI CELLS 6 /uL (0-25.1); HYALINE CASTS 0 /uL (0-3.1); PH,URINE 5.5 (5.0-8.0); URINE APPEARANCE TURBID; URINE BACTERIA 66 /uL (0-1359); URINE BILIRUBIN NEGATIVE (NEGATIVE); URINE COLOR YELLOW; URINE GLUCOSE (UA) NEGATIVE (NEGATIVE); URINE KETONE NEGATIVE (NEGATIVE); URINE LEUK ESTERASE 3+ (NEGATIVE); URINE NITRITE NEGATIVE (NEGATIVE); URINE PROTEIN 1+ (NEGATIVE); URINE RBC 45 /uL (0-23.9); URINE UROBILINOGEN 0.2 mg/dL (0.2-1.0); URINE WBC 3293 /uL (0-25.8)
[2024-01-17] MEDS: VANCOMYCIN 1,500 MG in DEXTROSE 5%-WATER - 500 ML IVPB ONE (00:14)
[2024-01-17] MEDS: VANCOMYCIN PREMIX 1.5 GM 1,500 MG/300 ML BAG IVPB ONE (00:14)
[2024-01-17 02:02] VITALS: BP 147/72; RESP 16; TEMP 97.6
== END 2024-01-17 03:18 | disposition left against medical advice (07) ==
LOC: JER 21:19
DX: N39.0 Urinary tract infection, site not specified (principal); R50.9 Fever, unspecified; R53.83 Other fatigue; Z20.822 Contact with and (suspected) exposure to COVID-19
CPT/HCPCS: 0241U-QW; 36415; 71046-TC-FY; 80053; 81003; 82803; 83605; 84484; 85025; 85610; 85730; 86850; 86900; 86901; 87040; 87077; 87086; 93005; 93010; 96365; 96366; 96375; 99285-25

== ENCOUNTER 2024-01-29 20:47 | Inpatient (IN) | payer OTHER ==
[2024-01-29 21:40] LABS: BASO % 1.2 % (0-2.0); EOS % 2.7 % (0-4.5); HEMATOCRIT 36.9 % (35.4-49); HEMOGLOBIN 12.5 GM/dL (11.7-16.9); LYMPH % 25.6 % (8-40); MCH 33.5 pg (25.7-33.7); MCHC 33.8 g/dl (32.0-35.9); MEAN CELL VOLUME 99.2 fl (80-96); MEAN PLT VOLUME 6.2 fl (7.5-11.1); MONO % 10.5 % (3.8-10.2); PLATELET COUNT 459 10^3/uL (134-434); RBC 3.72 M/mm3 (4.00-5.60); RDW 13.4 % (11.9-15.9)
[2024-01-29 21:53] LABS: POTASSIUM 4.4 mmol/L (3.5-5.1)
[2024-01-29 21:54] LABS: CALCIUM 8.2 mg/dL (8.5-10.1)
[2024-01-29 21:55] LABS: ALBUMIN 2.5 g/dl (3.4-5.0); BLOOD UREA NITROGEN 11.5 mg/dL (7-18)
[2024-01-29 21:57] LABS: EPI CELLS 15 /uL (0-25.1); HYALINE CASTS 1 /uL (0-3.1); PH,URINE 5.5 (5.0-8.0); URINE APPEARANCE CLOUDY; URINE BACTERIA 101 /uL (0-1359); URINE BILIRUBIN NEGATIVE (NEGATIVE); URINE COLOR YELLOW; URINE GLUCOSE (UA) NEGATIVE (NEGATIVE); URINE KETONE NEGATIVE (NEGATIVE); URINE LEUK ESTERASE 3+ (NEGATIVE); URINE NITRITE NEGATIVE (NEGATIVE); URINE PROTEIN 1+ (NEGATIVE); URINE RBC 37 /uL (0-23.9); URINE UROBILINOGEN 0.2 mg/dL (0.2-1.0); URINE WBC 2453 /uL (0-25.8)
[2024-01-29 21:59] LABS: BILIRUBIN,TOTAL 0.5 mg/dL (0.2-1)
[2024-01-29] MEDS ORDERED: CEFTRIAXONE 1 GM/50 ML BAG ONE (23:03)
[2024-01-30] MEDS ORDERED: PIPERACILLIN/TAZOB 3.375 GM 3.375 GM/50 ML BAG IVPB ONE ×2 (01:50→09:10)
[2024-01-30] MEDS: PIPERACILLIN/TAZOB 3.375 GM 3.375 GM in DEXTROSE 5%-WATER - 50 ML IVPB SCH ×2 (02:10→10:15)
[2024-01-30 06:33] LABS: BASO % 1.1 % (0-2.0); EOS % 5.6 % (0-4.5); HEMOGLOBIN 12.3 GM/dL (11.7-16.9); LYMPH % 36.6 % (8-40); MCH 33.7 pg (25.7-33.7); MCHC 34.3 g/dl (32.0-35.9); MEAN CELL VOLUME 98.3 fl (80-96); MEAN PLT VOLUME 6.5 fl (7.5-11.1); MONO % 13.5 % (3.8-10.2); NEUT % 43.2 % (42.8-82.8); PLATELET COUNT 449 10^3/uL (134-434); RBC 3.66 M/mm3 (4.00-5.60); RDW 13.1 % (11.9-15.9); WHITE BLOOD COUNT 11.5 K/mm3 (4.0-10.0)
[2024-01-30 06:51] LABS: POTASSIUM 4.4 mmol/L (3.5-5.1)
[2024-01-30 06:56] LABS: CALCIUM 8.1 mg/dL (8.5-10.1)
[2024-01-30 06:57] LABS: ALBUMIN 2.2 g/dl (3.4-5.0); BLOOD UREA NITROGEN 9.5 mg/dL (7-18); MAGNESIUM 1.5 mg/dL (1.8-2.4)
[2024-01-30 06:59] LABS: PHOSPHOROUS 3.4 mg/dL (2.5-4.9)
[2024-01-30 07:00] LABS: CREATININE 0.9 mg/dL (0.55-1.3)
[2024-01-30 07:01] LABS: BILIRUBIN,TOTAL 0.5 mg/dL (0.2-1); TOT PROT 5.5 g/dl (6.4-8.2)
[2024-01-30] MEDS: ENOXAPARIN NA (PORCINE) 40 MG/0.4 ML DISP.SYRIN SQ SCH (10:15)
[2024-01-30] MEDS: FLUCONAZOLE 100 MG TABLET (UD) PO SCH (10:15)
[2024-01-30 12:38] VITALS: BMI 23.6
[2024-01-30] MEDS: CEFTRIAXONE 2 GM in DEXTROSE 5%-WATER 100 ML IVPB SCH (16:22)
[2024-01-30] MEDS: MELATONIN 5 MG TABLETS PO ONE (22:12)
[2024-01-31] MEDS: ACETAMINOPHEN 1000 MG/100 ML BAG IVPB ONE (02:49)
[2024-01-31] MEDS: MELATONIN 5 MG TABLETS PO ONE ×2 (04:37→23:45)
[2024-01-31 08:04] LABS: HEMATOCRIT 38.4 % (35.4-49); HEMOGLOBIN 12.9 GM/dL (11.7-16.9); MCH 32.9 pg (25.7-33.7); MCHC 33.7 g/dl (32.0-35.9); MEAN CELL VOLUME 97.7 fl (80-96); MEAN PLT VOLUME 6.7 fl (7.5-11.1); PLATELET COUNT 502 10^3/uL (134-434); RBC 3.92 M/mm3 (4.00-5.60); WHITE BLOOD COUNT 20.2 K/mm3 (4.0-10.0)
[2024-01-31 08:19] LABS: POTASSIUM 4.6 mmol/L (3.5-5.1)
[2024-01-31 08:33] LABS: ALBUMIN 2.6 g/dl (3.4-5.0); BLOOD UREA NITROGEN 9.4 mg/dL (7-18); CALCIUM 8.7 mg/dL (8.5-10.1); MAGNESIUM 1.4 mg/dL (1.8-2.4)
[2024-01-31 08:37] LABS: CREATININE 1.1 mg/dL (0.55-1.3)
[2024-01-31 08:38] LABS: BILIRUBIN,TOTAL 0.8 mg/dL (0.2-1); TOT PROT 6.1 g/dl (6.4-8.2)
[2024-01-31 09:15] LABS: ANISOCYTOSIS 0; HELMET CELLS 0; HOWELL-JOLLY BODIES 0; MACROCYTOSIS 0; OVALOCYTE 0; ROULEAU 0; SICKELED CELLS 0; TARGET CELLS 0; TEAR DROP CELLS 0; TOXIC GRANULATION 0
[2024-01-31] MEDS: MAGNESIUM SULF 50% (8.12 MEQ/2 ML-1 GM VIAL) IVPB ONE (10:22)
[2024-01-31] MEDS: PIPERACILLIN/TAZOB 2.25 GM 2.25 GM in DEXTROSE 5%-WATER - 50 ML IVPB SCH (15:59)
[2024-01-31] MEDS: LACTATED RINGERS SOLUTION 1,000 ML/1,000 ML INFUS.BAG IV SCH (18:14)
[2024-01-31 19:47] LABS: N-TERMINAL BNP 622.2 pg/ml (5-450)
[2024-02-01] MEDS: hydrOXYzine PAMOATE 25 MG CAPSULE (FP) PO ONE
[2024-02-01 09:27] LABS: BASO % 0.4 % (0-2.0); HEMATOCRIT 36.8 % (35.4-49); HEMOGLOBIN 12.6 GM/dL (11.7-16.9); LYMPH % 14.7 % (8-40); MCH 33.6 pg (25.7-33.7); MCHC 34.3 g/dl (32.0-35.9); MEAN CELL VOLUME 97.9 fl (80-96); MEAN PLT VOLUME 6.6 fl (7.5-11.1); MONO % 11.9 % (3.8-10.2); PLATELET COUNT 499 10^3/uL (134-434); RBC 3.76 M/mm3 (4.00-5.60); WHITE BLOOD COUNT 14.3 K/mm3 (4.0-10.0)
[2024-02-01 09:54] LABS: POTASSIUM 4.6 mmol/L (3.5-5.1)
[2024-02-01 09:59] LABS: ALBUMIN 2.4 g/dl (3.4-5.0)
[2024-02-01 10:01] LABS: BILIRUBIN,DIRECT 0.3 mg/dL (0.0-0.2)
[2024-02-01 10:03] LABS: BILIRUBIN,TOTAL 1.1 mg/dL (0.2-1)
[2024-02-01 10:04] LABS: TOT PROT 5.6 g/dl (6.4-8.2)
[2024-02-01 10:13] LABS: BLOOD UREA NITROGEN 7.2 mg/dL (7-18)
[2024-02-01 10:14] LABS: ALBUMIN 2.3 g/dl (3.4-5.0); CALCIUM 8.3 mg/dL (8.5-10.1); MAGNESIUM 1.7 mg/dL (1.8-2.4)
[2024-02-01 10:16] LABS: CREATININE 0.9 mg/dL (0.55-1.3)
[2024-02-01 10:17] LABS: BILIRUBIN,TOTAL 1.5 mg/dL (0.2-1); TOT PROT 5.8 g/dl (6.4-8.2)
[2024-02-01 10:18] LABS: PHOSPHOROUS 3.5 mg/dL (2.5-4.9)
[2024-02-01] MEDS: MAGNESIUM 2GM/50ML STERILE WATER IVPB IVPB ONE (12:24)
[2024-02-01] MEDS ORDERED: ACETAMINOPHEN 1000 MG/100 ML BAG IVPB PRN (12:33)
[2024-02-02] MEDS: ACETAMINOPHEN 325 MG TABLET (FP) PO ONE (00:41)
[2024-02-02] MEDS: PIPERACILLIN/TAZOB 2.25 GM 2.25 GM in DEXTROSE 5%-WATER - 50 ML IVPB SCH (03:00)
[2024-02-02] MEDS: LACTATED RINGERS SOLUTION 1,000 ML/1,000 ML INFUS.BAG IV SCH (06:37)
[2024-02-02] MEDS: ACETAMINOPHEN 1000 MG/100 ML BAG IVPB ONE (06:40)
[2024-02-02 08:51] LABS: BASO % 0.4 % (0-2.0); EOS % 0.2 % (0-4.5); HEMATOCRIT 35.5 % (35.4-49); HEMOGLOBIN 12.2 GM/dL (11.7-16.9); LYMPH % 9.7 % (8-40); MCH 33.4 pg (25.7-33.7); MCHC 34.4 g/dl (32.0-35.9); MEAN PLT VOLUME 6.9 fl (7.5-11.1); MONO % 13.8 % (3.8-10.2); NEUT % 75.9 % (42.8-82.8); PLATELET COUNT 467 10^3/uL (134-434); RBC 3.66 M/mm3 (4.00-5.60); RDW 12.8 % (11.9-15.9); WHITE BLOOD COUNT 14.5 K/mm3 (4.0-10.0)
[2024-02-02 09:17] LABS: POTASSIUM 4.3 mmol/L (3.5-5.1)
[2024-02-02 09:21] LABS: ALBUMIN 2.1 g/dl (3.4-5.0); CALCIUM 7.9 mg/dL (8.5-10.1)
[2024-02-02 09:22] LABS: MAGNESIUM 1.5 mg/dL (1.8-2.4)
[2024-02-02 09:24] LABS: CREATININE 0.8 mg/dL (0.55-1.3); PHOSPHOROUS 2.9 mg/dL (2.5-4.9)
[2024-02-02 09:25] LABS: BILIRUBIN,TOTAL 0.8 mg/dL (0.2-1); TOT PROT 5.4 g/dl (6.4-8.2)
[2024-02-02] MEDS: MAGNESIUM 2GM/50ML STERILE WATER IVPB IVPB ONE (11:23)
[2024-02-03] MEDS: ACETAMINOPHEN 1000 MG/100 ML BAG IVPB ONE (02:06)
[2024-02-03 09:56] LABS: HEMATOCRIT 34.7 % (35.4-49); HEMOGLOBIN 11.8 GM/dL (11.7-16.9); MCH 32.9 pg (25.7-33.7); MEAN CELL VOLUME 96.8 fl (80-96); MEAN PLT VOLUME 6.7 fl (7.5-11.1); PLATELET COUNT 461 10^3/uL (134-434); RBC 3.58 M/mm3 (4.00-5.60); RDW 13.4 % (11.9-15.9); WHITE BLOOD COUNT 13.1 K/mm3 (4.0-10.0)
[2024-02-03 10:17] LABS: POTASSIUM 3.8 mmol/L (3.5-5.1)
[2024-02-03 10:18] LABS: CALCIUM 8.1 mg/dL (8.5-10.1)
[2024-02-03 10:19] LABS: BLOOD UREA NITROGEN 10.8 mg/dL (7-18)
[2024-02-03 10:22] LABS: PHOSPHOROUS 2.9 mg/dL (2.5-4.9)
[2024-02-03] MEDS: ACETAMINOPHEN 1000 MG/100 ML BAG IVPB PRN (12:55)
[2024-02-03 18:23] VITALS: RESP 18
[2024-02-04 08:26] LABS: HEMATOCRIT 35.3 % (35.4-49); HEMOGLOBIN 12.2 GM/dL (11.7-16.9); MCH 33.5 pg (25.7-33.7); MCHC 34.4 g/dl (32.0-35.9); MEAN CELL VOLUME 97.4 fl (80-96); MEAN PLT VOLUME 6.7 fl (7.5-11.1); PLATELET COUNT 496 10^3/uL (134-434); RBC 3.63 M/mm3 (4.00-5.60); RDW 13.3 % (11.9-15.9); WHITE BLOOD COUNT 15.3 K/mm3 (4.0-10.0)
[2024-02-04 08:44] LABS: POTASSIUM 3.8 mmol/L (3.5-5.1)
[2024-02-04 08:54] LABS: CALCIUM 8.2 mg/dL (8.5-10.1)
[2024-02-04 08:55] LABS: BLOOD UREA NITROGEN 8.9 mg/dL (7-18); MAGNESIUM 1.8 mg/dL (1.8-2.4)
[2024-02-04 08:58] LABS: CREATININE 0.8 mg/dL (0.55-1.3); PHOSPHOROUS 2.7 mg/dL (2.5-4.9)
[2024-02-04] MEDS: AMOX TR/POT CLAV 500MG/125MG TABLETS (FP) PO SCH (09:52)
[2024-02-04] MEDS: MELATONIN 5 MG TABLETS PO PRN (21:34)
[2024-02-05] MEDS: ACETAMINOPHEN 1000 MG/100 ML BAG IVPB ONE (02:43)
[2024-02-05 08:35] LABS: HEMATOCRIT 38.8 % (35.4-49); MCH 32.9 pg (25.7-33.7); MCHC 33.5 g/dl (32.0-35.9); MEAN CELL VOLUME 98.1 fl (80-96); MEAN PLT VOLUME 6.5 fl (7.5-11.1); PLATELET COUNT 544 10^3/uL (134-434); RBC 3.96 M/mm3 (4.00-5.60); RDW 13.3 % (11.9-15.9); WHITE BLOOD COUNT 12.7 K/mm3 (4.0-10.0)
[2024-02-05 08:50] LABS: POTASSIUM 4.3 mmol/L (3.5-5.1)
[2024-02-05 08:51] LABS: CALCIUM 8.5 mg/dL (8.5-10.1)
[2024-02-05 08:53] LABS: MAGNESIUM 1.8 mg/dL (1.8-2.4)
[2024-02-05 08:56] LABS: CREATININE 0.7 mg/dL (0.55-1.3); PHOSPHOROUS 2.4 mg/dL (2.5-4.9)
[2024-02-05] MEDS: DEXTROSE 5%-NORMAL SALINE 1,000 ML IV SCH (20:01)
[2024-02-06 09:56] LABS: BASO % 0.6 % (0-2.0); EOS % 1.7 % (0-4.5); HEMATOCRIT 36.1 % (35.4-49); HEMOGLOBIN 12.1 GM/dL (11.7-16.9); LYMPH % 16.9 % (8-40); MCH 33.1 pg (25.7-33.7); MCHC 33.4 g/dl (32.0-35.9); MEAN PLT VOLUME 6.3 fl (7.5-11.1); MONO % 8.9 % (3.8-10.2); NEUT % 71.9 % (42.8-82.8); PLATELET COUNT 490 10^3/uL (134-434); RBC 3.65 M/mm3 (4.00-5.60); RDW 13.1 % (11.9-15.9); WHITE BLOOD COUNT 13.5 K/mm3 (4.0-10.0)
[2024-02-06 10:33] LABS: ALBUMIN 1.9 g/dl (3.4-5.0); BLOOD UREA NITROGEN 7.9 mg/dL (7-18); CALCIUM 8.3 mg/dL (8.5-10.1); CREATININE 0.6 mg/dL (0.55-1.3); MAGNESIUM 1.5 mg/dL (1.8-2.4); PHOSPHOROUS 2.4 mg/dL (2.5-4.9); POTASSIUM 4.9 mmol/L (3.5-5.1)
[2024-02-06 10:35] LABS: BILIRUBIN,TOTAL 0.3 mg/dL (0.2-1)
[2024-02-06 10:38] LABS: TOT PROT 5.3 g/dl (6.4-8.2)
[2024-02-06] MEDS: SENNOSIDES 8.6MG TABLET (FP) PO ONE (12:57)
[2024-02-06] MEDS: MAGNESIUM SULF 50% (8.12 MEQ/2 ML-1 GM VIAL) IVPB ONE (12:57)
[2024-02-06] MEDS: POLYETHYLENE GLYCOL (HEALTHYLAX) 3350 17 GM PACKET PO SCH (12:57)
[2024-02-06 13:22] VITALS: PULSE 85
[2024-02-06 18:33] VITALS: BP 122/97; TEMP 98.2
== END 2024-02-06 19:17 | disposition home health service (06) | DRG 690 ==
LOC: JER 20:47 → JERBED 23:23 → OBSVTOIN 01-30 01:34 → J5S 01-30 11:05
PROVIDERS: ADMIT Internal Medicine
DX: N30.90 Cystitis, unspecified without hematuria (principal); I45.2 Bifascicular block; F03.90 Unspecified dementia, unspecified severity, without behavioral disturbance, psychotic disturbance, mood disturbance, and anxiety; I10 Essential (primary) hypertension; K52.9 Noninfective gastroenteritis and colitis, unspecified; R29.6 Repeated falls; N40.0 Benign prostatic hyperplasia without lower urinary tract symptoms; D72.829 Elevated white blood cell count, unspecified
CPT/HCPCS: 0241U-QW; 36415; 71045-TC-FY; 74177-TC; 76775-TC; 80048; 80053; 80076; 81003; 83605; 83735; 83880; 84100; 84443; 85025; 85027; 87040; 87086; 93005; 93010; 93306-TC; 97116-GP; 97161-GP; 99285-25; G0378; J0131; Q9967

== ENCOUNTER 2024-02-08 17:08 | Inpatient (IN) | payer OTHER ==
[2024-02-08] MEDS ORDERED: ACETAMINOPHEN INJECTION 100 ML IVPB ONE (18:27)
[2024-02-08] MEDS: ACETAMINOPHEN 1000 MG/100 ML BAG IVPB ONE (18:45)
[2024-02-08 18:53] LABS: BASO % 0.6 % (0-2.0); EOS % 0.3 % (0-4.5); HEMATOCRIT 36.2 % (35.4-49); HEMOGLOBIN 12.2 GM/dL (11.7-16.9); LYMPH % 19.3 % (8-40); MCH 32.8 pg (25.7-33.7); MCHC 33.7 g/dl (32.0-35.9); MEAN CELL VOLUME 97.4 fl (80-96); MEAN PLT VOLUME 6.3 fl (7.5-11.1); MONO % 14.1 % (3.8-10.2); NEUT % 65.7 % (42.8-82.8); PLATELET COUNT 603 10^3/uL (134-434); RBC 3.71 M/mm3 (4.00-5.60); RDW 13.3 % (11.9-15.9); WHITE BLOOD COUNT 16.3 K/mm3 (4.0-10.0)
[2024-02-08 18:54] LABS: EPI CELLS 15 /uL (0-25.1); HYALINE CASTS 2 /uL (0-3.1); PH,URINE 6.5 (5.0-8.0); URINE APPEARANCE CLOUDY; URINE BACTERIA 142 /uL (0-1359); URINE BILIRUBIN NEGATIVE (NEGATIVE); URINE COLOR YELLOW; URINE GLUCOSE (UA) NEGATIVE (NEGATIVE); URINE KETONE NEGATIVE (NEGATIVE); URINE LEUK ESTERASE 3+ (NEGATIVE); URINE NITRITE NEGATIVE (NEGATIVE); URINE PROTEIN 1+ (NEGATIVE); URINE RBC 719 /uL (0-23.9); URINE WBC 3002 /uL (0-25.8)
[2024-02-08 18:55] LABS: VENOUS BASE EXCESS -5.1 mmol/L (-2-2); VENOUS O2 SATURATION 88.8 % (70-80); VENOUS PCO2 41.4 mmHg (38-52); VENOUS PH 7.318 (7.310-7.410)
[2024-02-08 19:11] LABS: POTASSIUM 5.2 mmol/L (3.5-5.1)
[2024-02-08 19:14] LABS: CALCIUM 8.8 mg/dL (8.5-10.1)
[2024-02-08 19:15] LABS: ALBUMIN 2.2 g/dl (3.4-5.0); BLOOD UREA NITROGEN 12.2 mg/dL (7-18)
[2024-02-08 19:18] LABS: CREATININE 0.8 mg/dL (0.55-1.3)
[2024-02-08 19:19] LABS: BILIRUBIN,TOTAL 0.4 mg/dL (0.2-1); TOT PROT 6.1 g/dl (6.4-8.2)
[2024-02-08 20:02] LABS: CALCIUM 7.6 mg/dL (8.5-10.1)
[2024-02-08 20:03] LABS: ALBUMIN 1.8 g/dl (3.4-5.0); BLOOD UREA NITROGEN 10.7 mg/dL (7-18)
[2024-02-08 20:06] LABS: CREATININE 0.7 mg/dL (0.55-1.3)
[2024-02-08 20:07] LABS: BILIRUBIN,TOTAL 0.4 mg/dL (0.2-1)
[2024-02-08 20:08] LABS: TOT PROT 5.5 g/dl (6.4-8.2)
[2024-02-08] MEDS ORDERED: PIPERACILLIN/TAZOB 4.5 GM 4.5 GM/100 ML BAG IVPB ONE (20:16)
[2024-02-08] MEDS: PIPERACILLIN/TAZOB 4.5 GM 4.5 GM in DEXTROSE 5%-WATER 100 ML IVPB ONE (20:17)
[2024-02-08] MEDS ORDERED: VANCOMYCIN 1 GRAM (PRE-DOCKED) 1,000 MG/250 ML BAG IVPB ONE (20:39)
[2024-02-08] MEDS: VANCOMYCIN 1,000 MG in DEXTROSE 5%-WATER - 250 ML IVPB ONE (20:41)
[2024-02-08 21:33] LABS: YEAST NONE SEEN (NEGATIVE)
[2024-02-09] MEDS: SODIUM CHLORIDE 1,000 ML IV SCH (03:36)
[2024-02-09] MEDS: PIPERACILLIN/TAZOB 4.5 GM 4.5 GM in DEXTROSE 5%-WATER 100 ML IVPB SCH ×2 (03:36→18:41)
[2024-02-09 05:25] VITALS: BMI 22.7
[2024-02-09 09:41] LABS: BASO % 0.3 % (0-2.0); EOS % 1.3 % (0-4.5); HEMATOCRIT 33.6 % (35.4-49); HEMOGLOBIN 11.6 GM/dL (11.7-16.9); LYMPH % 17.2 % (8-40); MCH 33.2 pg (25.7-33.7); MCHC 34.6 g/dl (32.0-35.9); MEAN CELL VOLUME 96.1 fl (80-96); MEAN PLT VOLUME 6.2 fl (7.5-11.1); MONO % 11.3 % (3.8-10.2); NEUT % 69.9 % (42.8-82.8); PLATELET COUNT 561 10^3/uL (134-434); RBC 3.49 M/mm3 (4.00-5.60); RDW 13.1 % (11.9-15.9); WHITE BLOOD COUNT 11.9 K/mm3 (4.0-10.0)
[2024-02-09 09:46] LABS: POTASSIUM 4.4 mmol/L (3.5-5.1)
[2024-02-09 10:06] LABS: ALBUMIN 1.8 g/dl (3.4-5.0); BLOOD UREA NITROGEN 10.8 mg/dL (7-18); CALCIUM 8.1 mg/dL (8.5-10.1); MAGNESIUM 1.8 mg/dL (1.8-2.4)
[2024-02-09 10:09] LABS: CREATININE 0.7 mg/dL (0.55-1.3); PHOSPHOROUS 3.1 mg/dL (2.5-4.9)
[2024-02-09 10:10] LABS: BILIRUBIN,TOTAL 0.4 mg/dL (0.2-1); TOT PROT 5.4 g/dl (6.4-8.2)
[2024-02-09] MEDS: ENOXAPARIN NA (PORCINE) 40 MG/0.4 ML DISP.SYRIN SQ SCH (10:29)
[2024-02-09] MEDS: ASPIRIN COATED 81 MG TABLET.EC PO SCH (10:31)
[2024-02-09] MEDS: ACETAMINOPHEN 1000 MG/100 ML BAG IVPB PRN (21:18)
[2024-02-09] MEDS: MELATONIN 5 MG TABLETS PO ONE (22:30)
[2024-02-10] MEDS: COLCHICINE 0.6 MG TAB PO ONE (03:08)
[2024-02-10 08:51] LABS: BASO % 0.2 % (0-2.0); HEMATOCRIT 33.9 % (35.4-49); HEMOGLOBIN 11.5 GM/dL (11.7-16.9); LYMPH % 16.6 % (8-40); MCH 32.3 pg (25.7-33.7); MCHC 33.8 g/dl (32.0-35.9); MEAN CELL VOLUME 95.6 fl (80-96); MONO % 11.8 % (3.8-10.2); NEUT % 70.4 % (42.8-82.8); PLATELET COUNT 692 10^3/uL (134-434); RBC 3.55 M/mm3 (4.00-5.60); RDW 13.3 % (11.9-15.9); WHITE BLOOD COUNT 13.8 K/mm3 (4.0-10.0)
[2024-02-10 09:02] LABS: POTASSIUM 4.2 mmol/L (3.5-5.1)
[2024-02-10 09:04] LABS: CALCIUM 8.4 mg/dL (8.5-10.1)
[2024-02-10 09:06] LABS: ALBUMIN 1.9 g/dl (3.4-5.0); BLOOD UREA NITROGEN 6.8 mg/dL (7-18); MAGNESIUM 1.6 mg/dL (1.8-2.4)
[2024-02-10 09:07] LABS: CREATININE 0.6 mg/dL (0.55-1.3)
[2024-02-10 09:09] LABS: BILIRUBIN,TOTAL 0.3 mg/dL (0.2-1); PHOSPHOROUS 2.2 mg/dL (2.5-4.9); TOT PROT 5.6 g/dl (6.4-8.2)
[2024-02-10] MEDS: MAGNESIUM 1GM/D5W - 1 GM/100 ML IVPB IVPB ONE (10:13)
[2024-02-10] MEDS: NAPH,MB-DB/K PH,MBDB POWDER PACKET PO SCH (10:14)
[2024-02-10] MEDS: CEFTRIAXONE 1 GM in DEXTROSE 5%-WATER - 50 ML IVPB SCH (11:24)
[2024-02-10] MEDS: MELATONIN 5 MG TABLETS PO PRN (22:12)
[2024-02-11 09:16] LABS: BASO % 0.3 % (0-2.0); EOS % 2.9 % (0-4.5); HEMATOCRIT 33.5 % (35.4-49); HEMOGLOBIN 11.5 GM/dL (11.7-16.9); LYMPH % 17.8 % (8-40); MCH 33.1 pg (25.7-33.7); MCHC 34.4 g/dl (32.0-35.9); MEAN CELL VOLUME 96.1 fl (80-96); MONO % 10.4 % (3.8-10.2); NEUT % 68.6 % (42.8-82.8); PLATELET COUNT 769 10^3/uL (134-434); RBC 3.48 M/mm3 (4.00-5.60); RDW 13.2 % (11.9-15.9); RETICULOCYTES 1.36 % (0.5-1.5); WHITE BLOOD COUNT 11.2 K/mm3 (4.0-10.0)
[2024-02-11 09:41] LABS: POTASSIUM 4.6 mmol/L (3.5-5.1)
[2024-02-11] MEDS: TAMSULOSIN HCL 0.4 MG CAP PO SCH (09:57)
[2024-02-11] MEDS: MEMANTINE HCL 5 MG TABLET (UD) PO SCH (09:57)
[2024-02-11 10:01] LABS: ALBUMIN 1.9 g/dl (3.4-5.0); CALCIUM 8.4 mg/dL (8.5-10.1)
[2024-02-11 10:02] LABS: BLOOD UREA NITROGEN 4.7 mg/dL (7-18); MAGNESIUM 1.8 mg/dL (1.8-2.4)
[2024-02-11 10:04] LABS: CREATININE 0.6 mg/dL (0.55-1.3); PHOSPHOROUS 2.4 mg/dL (2.5-4.9)
[2024-02-11 10:05] LABS: TOT PROT 5.4 g/dl (6.4-8.2)
[2024-02-11 10:07] LABS: BILIRUBIN,TOTAL 0.4 mg/dL (0.2-1)
[2024-02-11] MEDS: NAPH,MB-DB/K PH,MBDB POWDER PACKET PO SCH (14:30)
[2024-02-11] MEDS: POLYETHYLENE GLYCOL (HEALTHYLAX) 3350 17 GM PACKET PO SCH (20:30)
[2024-02-11] MEDS: SENNOSIDES 8.8 MG/5 ML SYRUP PO SCH (21:46)
[2024-02-12 15:46] LABS: BASO % 0.6 % (0-2.0); EOS % 1.9 % (0-4.5); HEMATOCRIT 34.3 % (35.4-49); HEMOGLOBIN 11.7 GM/dL (11.7-16.9); LYMPH % 24.4 % (8-40); MCH 32.9 pg (25.7-33.7); MCHC 34.2 g/dl (32.0-35.9); MEAN CELL VOLUME 96.1 fl (80-96); MEAN PLT VOLUME 5.9 fl (7.5-11.1); NEUT % 64.1 % (42.8-82.8); PLATELET COUNT 817 10^3/uL (134-434); RBC 3.57 M/mm3 (4.00-5.60)
[2024-02-12 16:13] LABS: POTASSIUM 4.8 mmol/L (3.5-5.1)
[2024-02-12 16:15] LABS: CALCIUM 8.3 mg/dL (8.5-10.1)
[2024-02-12 16:16] LABS: ALBUMIN 1.9 g/dl (3.4-5.0); BLOOD UREA NITROGEN 7.2 mg/dL (7-18)
[2024-02-12 17:18] LABS: BILIRUBIN,TOTAL 0.2 mg/dL (0.2-1); CREATININE 0.6 mg/dL (0.55-1.3); TOT PROT 5.7 g/dl (6.4-8.2)
[2024-02-12] MEDS: POTASSIUM PHOSPHATE 30 MM in DEXTROSE 5%-WATER - 500 ML IVPB ONE (17:53)
[2024-02-12 18:47] LABS: PLATELET ESTIMATE INCREASED
[2024-02-13] MEDS: ACETAMINOPHEN 1000 MG/100 ML BAG IVPB ONE (05:59)
[2024-02-13 09:13] LABS: BASO % 1.2 % (0-2.0); EOS % 1.1 % (0-4.5); HEMATOCRIT 34.4 % (35.4-49); HEMOGLOBIN 11.3 GM/dL (11.7-16.9); LYMPH % 21.4 % (8-40); MCH 31.8 pg (25.7-33.7); MCHC 32.9 g/dl (32.0-35.9); MEAN CELL VOLUME 96.6 fl (80-96); MONO % 7.5 % (3.8-10.2); NEUT % 68.8 % (42.8-82.8); PLATELET COUNT 886 10^3/uL (134-434); RBC 3.56 M/mm3 (4.00-5.60); RDW 12.9 % (11.9-15.9); WHITE BLOOD COUNT 13.2 K/mm3 (4.0-10.0)
[2024-02-13 09:14] LABS: MEAN PLT VOLUME 5.7 fl (7.5-11.1)
[2024-02-13 09:36] LABS: CALCIUM 8.9 mg/dL (8.5-10.1)
[2024-02-13 09:37] LABS: ALBUMIN 2.1 g/dl (3.4-5.0); BLOOD UREA NITROGEN 5.6 mg/dL (7-18)
[2024-02-13 09:40] LABS: CREATININE 0.7 mg/dL (0.55-1.3)
[2024-02-13 09:41] LABS: BILIRUBIN,TOTAL 0.2 mg/dL (0.2-1); TOT PROT 5.7 g/dl (6.4-8.2)
[2024-02-13] MEDS: DOXAZOSIN MESYLATE 1 MG TABLET PO SCH (10:49)
[2024-02-14 08:40] LABS: BASO % 0.8 % (0-2.0); EOS % 4.8 % (0-4.5); HEMATOCRIT 34.8 % (35.4-49); LYMPH % 25.1 % (8-40); MCH 33.1 pg (25.7-33.7); MCHC 34.6 g/dl (32.0-35.9); MEAN CELL VOLUME 95.7 fl (80-96); MEAN PLT VOLUME 5.9 fl (7.5-11.1); MONO % 11.2 % (3.8-10.2); NEUT % 58.1 % (42.8-82.8); PLATELET COUNT 968 10^3/uL (134-434); RBC 3.63 M/mm3 (4.00-5.60); RDW 13.1 % (11.9-15.9); WHITE BLOOD COUNT 9.4 K/mm3 (4.0-10.0)
[2024-02-14 08:57] LABS: POTASSIUM 5.3 mmol/L (3.5-5.1)
[2024-02-14 08:59] LABS: CALCIUM 8.8 mg/dL (8.5-10.1)
[2024-02-14 09:00] LABS: BLOOD UREA NITROGEN 7.8 mg/dL (7-18)
[2024-02-14 09:02] LABS: CREATININE 0.7 mg/dL (0.55-1.3)
[2024-02-14 09:04] LABS: BILIRUBIN,TOTAL 0.2 mg/dL (0.2-1); TOT PROT 5.6 g/dl (6.4-8.2)
[2024-02-14] MEDS: TAMSULOSIN HCL 0.4 MG CAP PO SCH (11:22)
[2024-02-16 11:31] LABS: HEMATOCRIT 34.4 % (35.4-49); HEMOGLOBIN 11.5 GM/dL (11.7-16.9); MCH 32.1 pg (25.7-33.7); MCHC 33.5 g/dl (32.0-35.9); MEAN CELL VOLUME 95.8 fl (80-96); MEAN PLT VOLUME 5.9 fl (7.5-11.1); RBC 3.59 M/mm3 (4.00-5.60); RDW 13.1 % (11.9-15.9); WHITE BLOOD COUNT 10.6 K/mm3 (4.0-10.0)
[2024-02-16 11:36] LABS: PLATELET COUNT 1180 10^3/uL (134-434)
[2024-02-16 12:02] LABS: POTASSIUM 4.9 mmol/L (3.5-5.1)
[2024-02-16 12:30] LABS: BLOOD UREA NITROGEN 8.6 mg/dL (7-18); MAGNESIUM 1.9 mg/dL (1.8-2.4)
[2024-02-16 12:32] LABS: CREATININE 0.8 mg/dL (0.55-1.3); PHOSPHOROUS 2.9 mg/dL (2.5-4.9)
[2024-02-16 15:44] VITALS: RESP 18
[2024-02-17 11:04] LABS: HEMATOCRIT 31.3 % (35.4-49); HEMOGLOBIN 10.6 GM/dL (11.7-16.9); MCH 32.3 pg (25.7-33.7); MCHC 33.8 g/dl (32.0-35.9); MEAN CELL VOLUME 95.7 fl (80-96); PLATELET COUNT 1035 10^3/uL (134-434); RBC 3.27 M/mm3 (4.00-5.60); RDW 13.1 % (11.9-15.9); WHITE BLOOD COUNT 11.2 K/mm3 (4.0-10.0)
[2024-02-17 11:05] LABS: MEAN PLT VOLUME 5.8 fl (7.5-11.1)
[2024-02-17 13:05] LABS: ANISOCYTOSIS 0; MACROCYTOSIS 0; TARGET CELLS 1+
[2024-02-19 12:20] VITALS: BP 136/77; PULSE 77; TEMP 97.2
== END 2024-02-19 13:02 | disposition home or self-care (01) | DRG 871 ==
LOC: JER 17:08 → JERBED 21:13 → J5S 02-09
PROVIDERS: ADMIT Internal Medicine
DX: A41.9 Sepsis, unspecified organism (principal); G92.8 Other toxic encephalopathy; J18.9 Pneumonia, unspecified organism; J98.11 Atelectasis; E44.0 Moderate protein-calorie malnutrition; N30.00 Acute cystitis without hematuria; N40.0 Benign prostatic hyperplasia without lower urinary tract symptoms; G30.9 Alzheimer's disease, unspecified; F02.80 Dementia in other diseases classified elsewhere, unspecified severity, without behavioral disturbance, psychotic disturbance, mood disturbance, and anxiety; M10.9 Gout, unspecified; R13.10 Dysphagia, unspecified; D50.9 Iron deficiency anemia, unspecified; D75.839 Thrombocytosis, unspecified; K57.90 Diverticulosis of intestine, part unspecified, without perforation or abscess without bleeding; E83.42 Hypomagnesemia; E83.39 Other disorders of phosphorus metabolism; E03.9 Hypothyroidism, unspecified; R33.8 Other retention of urine; N31.9 Neuromuscular dysfunction of bladder, unspecified; E78.5 Hyperlipidemia, unspecified; I12.9 Hypertensive chronic kidney disease with stage 1 through stage 4 chronic kidney disease, or unspecified chronic kidney disease; N18.9 Chronic kidney disease, unspecified; Z68.22 Body mass index [BMI] 22.0-22.9, adult
CPT/HCPCS: 0241U-QW; 36415; 71045-TC-FY; 71250-TC; 74230-TC-FY; 80048; 80053; 80307; 81003; 82140; 82607; 82728; 82746; 82803; 83540; 83550; 83605; 83735; 84100; 84153; 84439; 84443; 85025; 85027; 85045; 86780; 87040; 87086; 88300-TC; 92611-GN; 93005; 93010; 97116-GP; 99285-25; J0131

== ENCOUNTER 2024-02-27 10:21 | Inpatient (IN) | payer OTHER ==
[2024-02-27 12:20] LABS: BASO % 0.8 % (0-2.0); EOS % 0.9 % (0-4.5); HEMATOCRIT 33.3 % (35.4-49); HEMOGLOBIN 11.4 GM/dL (11.7-16.9); LYMPH % 15.6 % (8-40); MCH 32.6 pg (25.7-33.7); MCHC 34.2 g/dl (32.0-35.9); MEAN CELL VOLUME 95.2 fl (80-96); MEAN PLT VOLUME 5.7 fl (7.5-11.1); MONO % 10.1 % (3.8-10.2); NEUT % 72.6 % (42.8-82.8); PLATELET COUNT 642 10^3/uL (134-434); RDW 12.9 % (11.9-15.9); WHITE BLOOD COUNT 13.1 K/mm3 (4.0-10.0)
[2024-02-27 13:21] LABS: ERYTHROCYTE SEDIMENTATION RATE 23 mm/hr (0-20)
[2024-02-27 13:24] LABS: POTASSIUM 4.6 mmol/L (3.5-5.1)
[2024-02-27 13:29] LABS: ALBUMIN 2.3 g/dl (3.4-5.0); BLOOD UREA NITROGEN 12.1 mg/dL (7-18); CALCIUM 8.9 mg/dL (8.5-10.1)
[2024-02-27 13:33] LABS: BILIRUBIN,TOTAL 0.3 mg/dL (0.2-1); CREATININE 0.8 mg/dL (0.55-1.3); TOT PROT 5.7 g/dl (6.4-8.2)
[2024-02-27] MEDS ORDERED: HEPARIN NA (PORCINE) 5,000 UNITS/ML 1ML VIAL IVPUSH PRN (18:33)
[2024-02-27] MEDS ORDERED: HEPARIN NA (PORCINE) 5,000 UNITS/ML 1ML VIAL ONE (20:19)
[2024-02-27 20:33] LABS: INR 1.02 (0.83-1.09); PROTHROMBIN TIME (PATIENT) 11.5 SEC (9.7-13.0)
[2024-02-27 20:35] LABS: ACTIVATED PTT 29.1 SECONDS (25.2-36.5)
[2024-02-27] MEDS: HEPARIN NA (PORCINE) 5,000 UNITS/ML 1ML VIAL IVPUSH ONE (20:50)
[2024-02-27] MEDS ORDERED: HEPARIN INFUSION - 25,000 UNITS/500 ML INFUS.BAG IVPB ONE (21:37)
[2024-02-27] MEDS: HEPARIN INFUSION - 25,000 UNITS/500 ML INFUS.BAG IVPB SCH (21:51)
[2024-02-27] MEDS ORDERED: POLYETHYLENE GLYCOL (HEALTHYLAX) 3350 17 GM PACKET PO PRN (22:22)
[2024-02-28 04:35] LABS: EPI CELLS 3 /uL (0-25.1); HYALINE CASTS 1 /uL (0-3.1); URINE APPEARANCE CLEAR; URINE BACTERIA 14 /uL (0-1359); URINE BILIRUBIN NEGATIVE (NEGATIVE); URINE COLOR YELLOW; URINE GLUCOSE (UA) NEGATIVE (NEGATIVE); URINE KETONE NEGATIVE (NEGATIVE); URINE LEUK ESTERASE 1+ (NEGATIVE); URINE NITRITE NEGATIVE (NEGATIVE); URINE PROTEIN NEGATIVE (NEGATIVE); URINE RBC 7 /uL (0-23.9); URINE UROBILINOGEN 0.2 mg/dL (0.2-1.0); URINE WBC 34 /uL (0-25.8)
[2024-02-28 06:35] LABS: POTASSIUM 4.3 mmol/L (3.5-5.1)
[2024-02-28 06:38] LABS: BASO % 0.9 % (0-2.0); HEMATOCRIT 33.6 % (35.4-49); HEMOGLOBIN 11.4 GM/dL (11.7-16.9); LYMPH % 25.4 % (8-40); MCHC 33.8 g/dl (32.0-35.9); MEAN CELL VOLUME 94.6 fl (80-96); MEAN PLT VOLUME 6.5 fl (7.5-11.1); MONO % 12.4 % (3.8-10.2); NEUT % 58.3 % (42.8-82.8); PLATELET COUNT 636 10^3/uL (134-434); RBC 3.55 M/mm3 (4.00-5.60); WHITE BLOOD COUNT 11.8 K/mm3 (4.0-10.0)
[2024-02-28 06:40] LABS: CALCIUM 8.4 mg/dL (8.5-10.1)
[2024-02-28 06:41] LABS: ALBUMIN 2.2 g/dl (3.4-5.0); BLOOD UREA NITROGEN 7.8 mg/dL (7-18); MAGNESIUM 1.6 mg/dL (1.8-2.4)
[2024-02-28 06:43] LABS: PHOSPHOROUS 3.2 mg/dL (2.5-4.9)
[2024-02-28 06:44] LABS: CREATININE 0.6 mg/dL (0.55-1.3)
[2024-02-28 06:45] LABS: BILIRUBIN,TOTAL 0.4 mg/dL (0.2-1); TOT PROT 5.6 g/dl (6.4-8.2)
[2024-02-28] MEDS ORDERED: TAMSULOSIN HCL 0.4 MG CAP PO SCH (08:30)
[2024-02-28 09:19] LABS: INR 1.01 (0.83-1.09); PROTHROMBIN TIME (PATIENT) 11.6 SEC (9.7-13.0)
[2024-02-28 10:17] LABS: ACTIVATED PTT 38.5 SECONDS (25.2-36.5)
[2024-02-28] MEDS ORDERED: HEPARIN NA (PORCINE) 5,000 UNITS/ML 1ML VIAL ONE (10:29)
[2024-02-28] MEDS: HEPARIN NA (PORCINE) 5,000 UNITS/ML 1ML VIAL IVPUSH PRN (10:50)
[2024-02-28] MEDS: MEMANTINE HCL 10 MG TABLET (FP) PO SCH (11:26)
[2024-02-28] MEDS: DOXAZOSIN MESYLATE 1 MG TABLET PO SCH (11:26)
[2024-02-28] MEDS: ATORVASTATIN CA 80 MG TABLET (FP) PO SCH (21:19)
[2024-02-29 10:13] LABS: HEMATOCRIT 34.2 % (35.4-49); HEMOGLOBIN 11.6 GM/dL (11.7-16.9); MCH 32.2 pg (25.7-33.7); MCHC 33.9 g/dl (32.0-35.9); MEAN CELL VOLUME 94.8 fl (80-96); MEAN PLT VOLUME 6.7 fl (7.5-11.1); PLATELET COUNT 608 10^3/uL (134-434); RBC 3.61 M/mm3 (4.00-5.60); RDW 13.1 % (11.9-15.9); WHITE BLOOD COUNT 8.8 K/mm3 (4.0-10.0)
[2024-02-29 10:20] LABS: PROTHROMBIN TIME (PATIENT) 11.3 SEC (9.7-13.0)
[2024-02-29 10:23] LABS: ACTIVATED PTT 56.5 SECONDS (25.2-36.5)
[2024-02-29 10:32] LABS: POTASSIUM 4.5 mmol/L (3.5-5.1)
[2024-02-29 10:40] LABS: ALBUMIN 2.1 g/dl (3.4-5.0); CALCIUM 8.9 mg/dL (8.5-10.1)
[2024-02-29 10:41] LABS: BLOOD UREA NITROGEN 7.8 mg/dL (7-18); MAGNESIUM 1.9 mg/dL (1.8-2.4)
[2024-02-29 10:42] LABS: CREATININE 0.7 mg/dL (0.55-1.3)
[2024-02-29 10:43] LABS: BILIRUBIN,TOTAL 0.5 mg/dL (0.2-1); TOT PROT 5.4 g/dl (6.4-8.2)
[2024-02-29 10:44] LABS: BILIRUBIN,DIRECT 0.2 mg/dL (0.0-0.2); PHOSPHOROUS 3.8 mg/dL (2.5-4.9)
[2024-02-29] MEDS: ASPIRIN COATED 81 MG TABLET.EC PO SCH (18:12)
[2024-03-01 09:16] LABS: HEMATOCRIT 34.6 % (35.4-49); HEMOGLOBIN 11.7 GM/dL (11.7-16.9); MCH 32.4 pg (25.7-33.7); MCHC 33.9 g/dl (32.0-35.9); MEAN CELL VOLUME 95.6 fl (80-96); MEAN PLT VOLUME 6.6 fl (7.5-11.1); PLATELET COUNT 557 10^3/uL (134-434); RBC 3.62 M/mm3 (4.00-5.60); RDW 12.8 % (11.9-15.9)
[2024-03-01 09:36] LABS: POTASSIUM 4.3 mmol/L (3.5-5.1)
[2024-03-01 09:47] LABS: MAGNESIUM 1.8 mg/dL (1.8-2.4)
[2024-03-01 09:48] LABS: BLOOD UREA NITROGEN 5.1 mg/dL (7-18)
[2024-03-01 09:50] LABS: CREATININE 0.7 mg/dL (0.55-1.3); PHOSPHOROUS 3.4 mg/dL (2.5-4.9)
[2024-03-01 09:51] LABS: CALCIUM 9.1 mg/dL (8.5-10.1)
[2024-03-01 14:21] VITALS: BMI 23.9
[2024-03-01] MEDS ORDERED: LIDOCAINE HCL 1%, 10 MG/ML (20ML VIAL) ONE (19:38)
[2024-03-01] MEDS ORDERED: MIDAZOLAM HCL 2 MG/2 ML SINGLE DOSE VIAL ONE (20:50)
[2024-03-01] MEDS ORDERED: PROPOFOL 20 ML ONE ×2 (20:57→21:24)
[2024-03-01] MEDS ORDERED: ceFAZolin SODIUM 1 GM VIAL ONE (20:59)
[2024-03-01] MEDS: ceFAZolin SODIUM 1 GM VIAL IVPB ONE (21:03)
[2024-03-01] MEDS: LIDOCAINE HCL 1%, 10 MG/ML (20ML VIAL) NR ONE (21:05)
[2024-03-01] MEDS ORDERED: HEPARIN NA (PORCINE) 5,000 UNITS/ML 1ML VIAL ONE (21:17)
[2024-03-01] MEDS ORDERED: ONDANSETRON 4 MG/2 ML VIAL ONE (21:22)
[2024-03-01] MEDS ORDERED: APIXABAN 5 MG TABLET PO SCH (22:15)
[2024-03-01] MEDS ORDERED: SODIUM CHLORIDE 1,000 ML IV SCH (22:15)
[2024-03-01] MEDS ORDERED: POLYETHYLENE GLYCOL (HEALTHYLAX) 3350 17 GM PACKET PO PRN (22:22)
[2024-03-01] MEDS ORDERED: CLOPIDOGREL BISULFATE 75 MG TABLET (FP) ONE (22:43)
[2024-03-01] MEDS: ACETAMINOPHEN 1000 MG/100 ML BAG IVPB ONE (23:02)
[2024-03-01] MEDS: CLOPIDOGREL BISULFATE 75 MG TABLET (FP) PO ONE (23:23)
[2024-03-01] MEDS: ATORVASTATIN CA 80 MG TABLET (FP) PO SCH (23:39)
[2024-03-02 03:07] VITALS: RESP 18
[2024-03-02] MEDS: DOXAZOSIN MESYLATE 1 MG TABLET PO SCH (09:50)
[2024-03-02] MEDS: ASPIRIN COATED 81 MG TABLET.EC PO SCH (09:51)
[2024-03-02] MEDS: CLOPIDOGREL BISULFATE 75 MG TABLET (FP) PO SCH (09:51)
[2024-03-02] MEDS: MEMANTINE HCL 10 MG TABLET (FP) PO SCH (09:51)
[2024-03-02 09:59] LABS: HEMATOCRIT 34.1 % (35.4-49); HEMOGLOBIN 11.6 GM/dL (11.7-16.9); MCH 32.2 pg (25.7-33.7); MCHC 34.1 g/dl (32.0-35.9); MEAN CELL VOLUME 94.5 fl (80-96); MEAN PLT VOLUME 6.2 fl (7.5-11.1); PLATELET COUNT 499 10^3/uL (134-434); RBC 3.61 M/mm3 (4.00-5.60); WHITE BLOOD COUNT 10.7 K/mm3 (4.0-10.0)
[2024-03-02 10:16] LABS: POTASSIUM 4.6 mmol/L (3.5-5.1)
[2024-03-02 10:26] LABS: ALBUMIN 2.2 g/dl (3.4-5.0); CALCIUM 8.8 mg/dL (8.5-10.1)
[2024-03-02 10:27] LABS: BLOOD UREA NITROGEN 7.9 mg/dL (7-18); MAGNESIUM 1.8 mg/dL (1.8-2.4); PHOSPHOROUS 4.1 mg/dL (2.5-4.9)
[2024-03-02 10:30] LABS: CREATININE 0.8 mg/dL (0.55-1.3)
[2024-03-02 10:31] LABS: BILIRUBIN,TOTAL 0.6 mg/dL (0.2-1); TOT PROT 5.3 g/dl (6.4-8.2)
[2024-03-03 08:50] LABS: HEMATOCRIT 33.3 % (35.4-49); HEMOGLOBIN 11.6 GM/dL (11.7-16.9); MCH 32.8 pg (25.7-33.7); MCHC 34.8 g/dl (32.0-35.9); MEAN CELL VOLUME 94.2 fl (80-96); MEAN PLT VOLUME 6.4 fl (7.5-11.1); PLATELET COUNT 470 10^3/uL (134-434); RBC 3.54 M/mm3 (4.00-5.60); RDW 12.9 % (11.9-15.9); WHITE BLOOD COUNT 13.6 K/mm3 (4.0-10.0)
[2024-03-03 09:22] LABS: POTASSIUM 4.6 mmol/L (3.5-5.1)
[2024-03-03 09:32] LABS: ALBUMIN 2.2 g/dl (3.4-5.0); CALCIUM 8.7 mg/dL (8.5-10.1)
[2024-03-03 09:34] LABS: BILIRUBIN,TOTAL 0.6 mg/dL (0.2-1); TOT PROT 5.5 g/dl (6.4-8.2)
[2024-03-03 09:35] LABS: CREATININE 0.9 mg/dL (0.55-1.3)
[2024-03-03 10:37] VITALS: BP 116/56; PULSE 77; TEMP 98.9
== END 2024-03-03 10:35 | disposition home or self-care (01) | DRG 270 ==
LOC: JER 10:21 → JERBED 18:34 → OBSVTOIN 02-28 07:52 → J6S 02-28 11:57
PROVIDERS: ADMIT Internal Medicine; ATTEND Internal Medicine
PROC: 047K3DZ Dilation of Right Femoral Artery with Intraluminal Device, Percutaneous Approach (ICD-10-PCS; 2024-03-01)
PROC: B41DYZZ Fluoroscopy of Aorta and Bilateral Lower Extremity Arteries using Other Contrast (ICD-10-PCS; 2024-03-01)
PROC: B40FYZZ Plain Radiography of Right Lower Extremity Arteries using Other Contrast (ICD-10-PCS; 2024-03-01)
PROC: 04CK3ZZ Extirpation of Matter from Right Femoral Artery, Percutaneous Approach (ICD-10-PCS; principal; 2024-03-01 19:00)
DX: I73.9 Peripheral vascular disease, unspecified (principal); E43 Unspecified severe protein-calorie malnutrition; F03.90 Unspecified dementia, unspecified severity, without behavioral disturbance, psychotic disturbance, mood disturbance, and anxiety; N40.0 Benign prostatic hyperplasia without lower urinary tract symptoms; I10 Essential (primary) hypertension; M10.9 Gout, unspecified; D75.839 Thrombocytosis, unspecified; I44.4 Left anterior fascicular block; R13.10 Dysphagia, unspecified; Z68.24 Body mass index [BMI] 24.0-24.9, adult
CPT/HCPCS: 36415; 73630-TC-RT-FY; 75635-TC; 76000-TC-FY; 80048; 80053; 80076; 81003; 83036; 83735; 84100; 85025; 85027; 85610; 85651; 85730; 86140; 93005; 93010; 94760; 99285-25; C1760; C1876; C1897; G0378; J0131; J1644; Q9967

== ENCOUNTER 2024-03-23 17:39 | Inpatient (IN) | payer OTHER ==
[2024-03-23 17:58] VITALS: BMI 24.3
[2024-03-23 18:50] LABS: HEMOGLOBIN 10.6 GM/dL (11.7-16.9); MCHC 33.1 g/dl (32.0-35.9); MEAN CELL VOLUME 93.7 fl (80-96); MEAN PLT VOLUME 6.3 fl (7.5-11.1); PLATELET COUNT 571 10^3/uL (134-434); RBC 3.42 M/mm3 (4.00-5.60); RDW 13.7 % (11.9-15.9); WHITE BLOOD COUNT 13.3 K/mm3 (4.0-10.0)
[2024-03-23 19:07] LABS: POTASSIUM 4.8 mmol/L (3.5-5.1)
[2024-03-23 19:10] LABS: ALBUMIN 2.1 g/dl (3.4-5.0); BLOOD UREA NITROGEN 14.1 mg/dL (7-18); MAGNESIUM 1.9 mg/dL (1.8-2.4)
[2024-03-23 19:14] LABS: BILIRUBIN,TOTAL 0.4 mg/dL (0.2-1); TOT PROT 5.3 g/dl (6.4-8.2)
[2024-03-23 19:20] LABS: ANISOCYTOSIS 0; MACROCYTOSIS 0
[2024-03-23 19:21] LABS: PLATELET ESTIMATE MOD INCREASED
[2024-03-23] MEDS: LACTATED RINGERS SOLUTION 1000 ML INFUS.BAG IV ONE (19:45)
[2024-03-23] MEDS: SODIUM CHLORIDE 0.9% 500 ML INFUS.BAG IV ONE (19:45)
[2024-03-23 19:53] LABS: EPI CELLS 14 /uL (0-25.1); HYALINE CASTS 2 /uL (0-3.1); URINE APPEARANCE TURBID; URINE BACTERIA >9,000 /uL (0-1359); URINE BILIRUBIN NEGATIVE (NEGATIVE); URINE COLOR DK YELLOW; URINE GLUCOSE (UA) NEGATIVE (NEGATIVE); URINE KETONE TRACE (NEGATIVE); URINE LEUK ESTERASE 3+ (NEGATIVE); URINE NITRITE POSITIVE (NEGATIVE); URINE PROTEIN 2+ (NEGATIVE); URINE RBC 342 /uL (0-23.9); URINE WBC 15916 /uL (0-25.8)
[2024-03-23 20:32] LABS: URINE CRYSTALS NONE SEEN /hpf
[2024-03-23] MEDS ORDERED: CEFTRIAXONE 1 GM/50 ML BAG ONE (20:57)
[2024-03-23] MEDS: CEFTRIAXONE 1,000 MG in DEXTROSE 5%-WATER - 50 ML IVPB ONE (21:01)
[2024-03-24] MEDS: SODIUM CHLORIDE 1,000 ML IV SCH (02:47)
[2024-03-24] MEDS: APIXABAN 5 MG TABLET PO SCH (10:15)
[2024-03-24] MEDS: CEFTRIAXONE 1 GM in DEXTROSE 5%-WATER - 50 ML IVPB SCH (10:15)
[2024-03-24] MEDS: FAMOTIDINE 20 MG TABLET PO SCH (10:15)
[2024-03-24] MEDS: MEMANTINE HCL 10 MG TABLET (FP) PO SCH (13:21)
[2024-03-24] MEDS: ATORVASTATIN CA 80 MG TABLET (FP) PO SCH (22:30)
[2024-03-25] MEDS: TAMSULOSIN HCL 0.4 MG CAP PO SCH (09:36)
[2024-03-25 10:23] LABS: BASO % 0.6 % (0-2.0); EOS % 1.2 % (0-4.5); HEMATOCRIT 31.6 % (35.4-49); HEMOGLOBIN 10.5 GM/dL (11.7-16.9); LYMPH % 19.7 % (8-40); MCH 31.2 pg (25.7-33.7); MCHC 33.1 g/dl (32.0-35.9); MEAN CELL VOLUME 94.2 fl (80-96); MEAN PLT VOLUME 6.4 fl (7.5-11.1); MONO % 8.6 % (3.8-10.2); NEUT % 69.9 % (42.8-82.8); PLATELET COUNT 553 10^3/uL (134-434); RBC 3.36 M/mm3 (4.00-5.60); RDW 13.9 % (11.9-15.9); WHITE BLOOD COUNT 12.6 K/mm3 (4.0-10.0)
[2024-03-25 10:44] LABS: POTASSIUM 4.3 mmol/L (3.5-5.1)
[2024-03-25 10:54] LABS: CALCIUM 8.2 mg/dL (8.5-10.1)
[2024-03-25 10:55] LABS: ALBUMIN 1.9 g/dl (3.4-5.0); BLOOD UREA NITROGEN 9.8 mg/dL (7-18)
[2024-03-25 10:56] LABS: MAGNESIUM 1.8 mg/dL (1.8-2.4)
[2024-03-25 11:02] LABS: CREATININE 0.7 mg/dL (0.55-1.3); PHOSPHOROUS 2.7 mg/dL (2.5-4.9)
[2024-03-25 11:03] LABS: BILIRUBIN,TOTAL 0.5 mg/dL (0.2-1)
[2024-03-25 11:08] LABS: TOT PROT 4.7 g/dl (6.4-8.2)
[2024-03-25] MEDS: MEROPENEM 1 GM in DEXTROSE 5%-WATER 100 ML IVPB SCH (18:53)
[2024-03-26 07:53] LABS: BASO % 0.8 % (0-2.0); EOS % 1.6 % (0-4.5); HEMATOCRIT 30.2 % (35.4-49); HEMOGLOBIN 10.3 GM/dL (11.7-16.9); LYMPH % 24.8 % (8-40); MCH 31.5 pg (25.7-33.7); MEAN CELL VOLUME 92.6 fl (80-96); MEAN PLT VOLUME 6.8 fl (7.5-11.1); NEUT % 61.8 % (42.8-82.8); PLATELET COUNT 508 10^3/uL (134-434); RBC 3.26 M/mm3 (4.00-5.60); RDW 13.7 % (11.9-15.9)
[2024-03-26 08:15] LABS: POTASSIUM 4.5 mmol/L (3.5-5.1)
[2024-03-26 08:24] LABS: CALCIUM 8.2 mg/dL (8.5-10.1)
[2024-03-26 08:25] LABS: BLOOD UREA NITROGEN 10.1 mg/dL (7-18)
[2024-03-26 08:28] LABS: CREATININE 0.6 mg/dL (0.55-1.3)
[2024-03-26] MEDS: DOXAZOSIN MESYLATE 1 MG TABLET PO SCH (10:51)
[2024-03-26] MEDS: MEROPENEM 1 GM in DEXTROSE 5%-WATER 100 ML IVPB SCH (11:15)
[2024-03-26] MEDS: ACETAMINOPHEN 325 MG TABLET (FP) PO PRN (12:01)
[2024-03-26] MEDS: BISACODYL 10 MG SUPP.RECT PR PRN (14:17)
[2024-03-27 07:59] LABS: BASO % 0.8 % (0-2.0); EOS % 2.9 % (0-4.5); HEMATOCRIT 31.2 % (35.4-49); HEMOGLOBIN 10.4 GM/dL (11.7-16.9); LYMPH % 27.6 % (8-40); MCH 31.5 pg (25.7-33.7); MCHC 33.4 g/dl (32.0-35.9); MEAN CELL VOLUME 94.3 fl (80-96); MEAN PLT VOLUME 6.5 fl (7.5-11.1); MONO % 12.8 % (3.8-10.2); NEUT % 55.9 % (42.8-82.8); PLATELET COUNT 525 10^3/uL (134-434); RBC 3.31 M/mm3 (4.00-5.60); RDW 13.8 % (11.9-15.9); WHITE BLOOD COUNT 10.6 K/mm3 (4.0-10.0)
[2024-03-27 08:12] LABS: POTASSIUM 4.3 mmol/L (3.5-5.1)
[2024-03-27 08:24] LABS: BLOOD UREA NITROGEN 11.4 mg/dL (7-18); CALCIUM 8.2 mg/dL (8.5-10.1)
[2024-03-27 08:28] LABS: CREATININE 0.7 mg/dL (0.55-1.3)
[2024-03-27] MEDS: SODIUM CHLORIDE 1,000 ML IV SCH (10:32)
[2024-03-27] MEDS: LACTULOSE 20 GM/30 ML UDC (FOR ORAL USE ONLY) PO ONE (10:33)
[2024-03-28 08:11] LABS: POTASSIUM 4.5 mmol/L (3.5-5.1)
[2024-03-28 08:16] LABS: BLOOD UREA NITROGEN 10.5 mg/dL (7-18); CALCIUM 8.2 mg/dL (8.5-10.1)
[2024-03-28 08:19] LABS: CREATININE 0.6 mg/dL (0.55-1.3)
[2024-03-28] MEDS: ASPIRIN 81 MG CHEWABLE TABLETS PO SCH (14:30)
[2024-03-29 15:05] VITALS: RESP 18
[2024-03-29] MEDS: SODIUM CHLORIDE 500 ML IV SCH (16:36)
[2024-03-30 08:09] LABS: BASO % 0.9 % (0-2.0); EOS % 3.1 % (0-4.5); HEMATOCRIT 32.5 % (35.4-49); LYMPH % 22.5 % (8-40); MCH 31.6 pg (25.7-33.7); MCHC 33.9 g/dl (32.0-35.9); MEAN CELL VOLUME 93.3 fl (80-96); MEAN PLT VOLUME 6.4 fl (7.5-11.1); MONO % 9.7 % (3.8-10.2); NEUT % 63.8 % (42.8-82.8); PLATELET COUNT 563 10^3/uL (134-434); RBC 3.49 M/mm3 (4.00-5.60); RDW 14.5 % (11.9-15.9); WHITE BLOOD COUNT 10.8 K/mm3 (4.0-10.0)
[2024-03-30 08:28] LABS: POTASSIUM 4.4 mmol/L (3.5-5.1)
[2024-03-30 08:30] LABS: CALCIUM 8.1 mg/dL (8.5-10.1)
[2024-03-30 08:31] LABS: ALBUMIN 1.9 g/dl (3.4-5.0); BLOOD UREA NITROGEN 8.7 mg/dL (7-18)
[2024-03-30 08:34] LABS: CREATININE 0.7 mg/dL (0.55-1.3)
[2024-03-30 08:35] LABS: BILIRUBIN,TOTAL 0.5 mg/dL (0.2-1)
[2024-03-30] MEDS: ERTAPENEM SODIUM 1 GM in SODIUM CHLORIDE 50 ML IVPB SCH (13:34)
[2024-03-30 15:35] VITALS: BP 122/64; PULSE 84; TEMP 97.3
== END 2024-03-30 17:26 | disposition home health service (06) | DRG 871 ==
LOC: JER 17:39 → JERBED 20:54 → J7W 03-24 04:24
PROVIDERS: ADMIT Internal Medicine; ATTEND Registered Nurse
PROC: 02HV33Z Insertion of Infusion Device into Superior Vena Cava, Percutaneous Approach (ICD-10-PCS; principal; 2024-03-30)
PROC: B518ZZA Fluoroscopy of Superior Vena Cava, Guidance (ICD-10-PCS; 2024-03-30)
DX: A41.51 Sepsis due to Escherichia coli [E. coli] (principal); E43 Unspecified severe protein-calorie malnutrition; N39.0 Urinary tract infection, site not specified; I10 Essential (primary) hypertension; E78.5 Hyperlipidemia, unspecified; F03.90 Unspecified dementia, unspecified severity, without behavioral disturbance, psychotic disturbance, mood disturbance, and anxiety; M10.9 Gout, unspecified; R50.9 Fever, unspecified; I73.9 Peripheral vascular disease, unspecified; D75.839 Thrombocytosis, unspecified; N40.0 Benign prostatic hyperplasia without lower urinary tract symptoms; K21.9 Gastro-esophageal reflux disease without esophagitis; Z68.24 Body mass index [BMI] 24.0-24.9, adult; Z99.3 Dependence on wheelchair; Z85.028 Personal history of other malignant neoplasm of stomach
CPT/HCPCS: 36415; 36569; 71045-TC-FY; 80048; 80053; 81003; 82962; 83735; 84100; 84484; 85025; 87040; 87086; 87186; 93005; 93010; 97116-GP; 97162-GP; 99285-25

== ENCOUNTER 2024-04-06 17:43 | Emergency (ER) | payer OTHER ==
[2024-04-06 18:16] VITALS: BMI 22.8
[2024-04-06] MEDS ORDERED: ACETAMINOPHEN 325 MG TABLET (FP) ONE (19:05)
[2024-04-06] MEDS: ACETAMINOPHEN 325 MG TABLET (FP) PO ONE (19:12)
[2024-04-06] MEDS ORDERED: ERTAPENEM SODIUM 1 GM VIAL ONE (19:52)
[2024-04-06] MEDS: ERTAPENEM SODIUM 1 GM in SODIUM CHLORIDE 50 ML IVPB ONE (20:07)
[2024-04-07 05:09] VITALS: BP 142/7; PULSE 68; RESP 16; TEMP 96.9
== END 2024-04-07 05:36 | disposition home or self-care (01) ==
LOC: JER 17:43
DX: S62.002A Unspecified fracture of navicular [scaphoid] bone of left wrist, initial encounter for closed fracture (principal); X58.XXXA Exposure to other specified factors, initial encounter
CPT/HCPCS: 73090-TC-LT-FY; 73110-TC-LT-FY; 73130-TC-LT-FY; 96365; 99284-25

== ENCOUNTER 2024-06-01 15:42 | Observation (INO) | payer OTHER ==
[2024-06-01 15:55] VITALS: BMI 21.9
[2024-06-01 17:35] LABS: HEMATOCRIT 35.2 % (35.4-49); HEMOGLOBIN 11.7 GM/dL (11.7-16.9); MCH 30.8 pg (25.7-33.7); MCHC 33.3 g/dl (32.0-35.9); MEAN CELL VOLUME 92.5 fl (80-96); MEAN PLT VOLUME 6.4 fl (7.5-11.1); PLATELET COUNT 455 10^3/uL (134-434); RBC 3.81 M/mm3 (4.00-5.60); RDW 16.4 % (11.9-15.9); WHITE BLOOD COUNT 10.8 K/mm3 (4.0-10.0)
[2024-06-01 17:40] LABS: EPI CELLS 12 /uL (0-25.1); HYALINE CASTS 1 /uL (0-3.1); URINE APPEARANCE CLOUDY; URINE BACTERIA 314 /uL (0-1359); URINE BILIRUBIN NEGATIVE (NEGATIVE); URINE COLOR YELLOW; URINE GLUCOSE (UA) NEGATIVE (NEGATIVE); URINE KETONE NEGATIVE (NEGATIVE); URINE LEUK ESTERASE 3+ (NEGATIVE); URINE NITRITE NEGATIVE (NEGATIVE); URINE PROTEIN 1+ (NEGATIVE); URINE RBC 11 /uL (0-23.9); URINE UROBILINOGEN 0.2 mg/dL (0.2-1.0); URINE WBC 3002 /uL (0-25.8)
[2024-06-01 17:56] LABS: POTASSIUM 5.2 mmol/L (3.5-5.1)
[2024-06-01 17:58] LABS: ALBUMIN 2.2 g/dl (3.4-5.0); BLOOD UREA NITROGEN 11.7 mg/dL (7-18); CALCIUM 8.4 mg/dL (8.5-10.1)
[2024-06-01 18:01] LABS: CREATININE 0.6 mg/dL (0.55-1.3)
[2024-06-01 18:03] LABS: BILIRUBIN,TOTAL 0.4 mg/dL (0.2-1); TOT PROT 5.7 g/dl (6.4-8.2)
[2024-06-01] MEDS ORDERED: ERTAPENEM SODIUM 1 GM VIAL ONE (18:57)
[2024-06-01] MEDS: ERTAPENEM SODIUM 1 GM in SODIUM CHLORIDE 50 ML IVPB ONE (19:12)
[2024-06-01 21:47] LABS: URINE CRYSTALS FEW /hpf; YEAST NONE SEEN (NEGATIVE)
[2024-06-01] MEDS ORDERED: APIXABAN 5 MG TABLET ONE (23:32)
[2024-06-01] MEDS: APIXABAN 5 MG TABLET PO SCH (23:40)
[2024-06-01] MEDS: SODIUM CHLORIDE 0.9% 500 ML INFUS.BAG IV ONE (23:40)
[2024-06-02 06:59] LABS: HEMATOCRIT 36.8 % (35.4-49); HEMOGLOBIN 12.2 GM/dL (11.7-16.9); MCH 30.7 pg (25.7-33.7); MCHC 33.1 g/dl (32.0-35.9); MEAN CELL VOLUME 92.9 fl (80-96); MEAN PLT VOLUME 7.2 fl (7.5-11.1); PLATELET COUNT 514 10^3/uL (134-434); RBC 3.96 M/mm3 (4.00-5.60); RDW 15.9 % (11.9-15.9); WHITE BLOOD COUNT 13.2 K/mm3 (4.0-10.0)
[2024-06-02 07:08] LABS: POTASSIUM 4.5 mmol/L (3.5-5.1)
[2024-06-02 07:10] LABS: CALCIUM 8.5 mg/dL (8.5-10.1)
[2024-06-02 07:11] LABS: ALBUMIN 2.3 g/dl (3.4-5.0); BLOOD UREA NITROGEN 9.3 mg/dL (7-18)
[2024-06-02 07:14] LABS: CREATININE 0.5 mg/dL (0.55-1.3)
[2024-06-02 07:15] LABS: BILIRUBIN,TOTAL 0.4 mg/dL (0.2-1)
[2024-06-02 07:16] LABS: TOT PROT 5.7 g/dl (6.4-8.2)
[2024-06-02] MEDS ORDERED: POLYETHYLENE GLYCOL (HEALTHYLAX) 3350 17 GM PACKET ONE (09:07)
[2024-06-02] MEDS: TAMSULOSIN HCL 0.4 MG CAP PO SCH (10:47)
[2024-06-02] MEDS: POLYETHYLENE GLYCOL (HEALTHYLAX) 3350 17 GM PACKET PO SCH (10:47)
[2024-06-02] MEDS: MEMANTINE HCL 10 MG TABLET (FP) PO SCH (10:48)
[2024-06-02] MEDS ORDERED: ACETAMINOPHEN 500 MG TABLET (FP) ONE (15:18)
[2024-06-02] MEDS: ACETAMINOPHEN 500 MG TABLET (FP) PO PRN (15:26)
[2024-06-02] MEDS: ERTAPENEM SODIUM 1 GM in SODIUM CHLORIDE 50 ML IVPB SCH (20:00)
[2024-06-03 10:38] LABS: BLOOD UREA NITROGEN 9.1 mg/dL (7-18); CALCIUM 8.4 mg/dL (8.5-10.1); MAGNESIUM 1.6 mg/dL (1.8-2.4); POTASSIUM 4.6 mmol/L (3.5-5.1)
[2024-06-03 10:41] LABS: BASO % 0.7 % (0-2.0); EOS % 1.2 % (0-4.5); HEMATOCRIT 35.7 % (35.4-49); LYMPH % 22.6 % (8-40); MCH 31.4 pg (25.7-33.7); MCHC 33.6 g/dl (32.0-35.9); MEAN CELL VOLUME 93.5 fl (80-96); MEAN PLT VOLUME 7.2 fl (7.5-11.1); MONO % 9.2 % (3.8-10.2); NEUT % 66.3 % (42.8-82.8); PLATELET COUNT 486 10^3/uL (134-434); RBC 3.82 M/mm3 (4.00-5.60); RDW 15.7 % (11.9-15.9); WHITE BLOOD COUNT 9.3 K/mm3 (4.0-10.0)
[2024-06-03 10:42] LABS: CREATININE 0.7 mg/dL (0.55-1.3)
[2024-06-03] MEDS: AMINO ACIDS/PROTEIN HYDROLYS 30 ML LIQUID.PKT PO SCH (16:54)
[2024-06-03] MEDS ORDERED: CEFTRIAXONE 1 G/50 ML PREMIX 50 ML IVPB SCH (19:00)
[2024-06-03] MEDS: cefTRIAXone SODIUM 1 GM VIAL IM ONE (19:58)
[2024-06-03] MEDS: MAGNESIUM OXIDE 400 MG TABLET (FP) PO SCH (21:09)
[2024-06-04] MEDS: MIDODRINE HCL 5 MG TABLET PO SCH (09:08)
[2024-06-04 10:49] LABS: POTASSIUM 4.7 mmol/L (3.5-5.1)
[2024-06-04 10:52] LABS: BLOOD UREA NITROGEN 12.5 mg/dL (7-18)
[2024-06-04 10:55] LABS: CREATININE 0.6 mg/dL (0.55-1.3)
[2024-06-04] MEDS: CEFUROXIME AXETIL 250 MG TABLET PO ONE (14:05)
[2024-06-04] MEDS: CEFTRIAXONE 1 G/50 ML PREMIX 50 ML IVPB SCH (20:24)
[2024-06-04] MEDS: CEFUROXIME AXETIL 250 MG TABLET PO SCH (21:16)
[2024-06-05 10:38] VITALS: BP 93/51; PULSE 70; RESP 16; TEMP 98.2
== END 2024-06-05 11:53 | disposition home or self-care (01) ==
LOC: JER 15:42 → JERBED 19:53 → J6S 06-02 20:50
PROVIDERS: ADMIT Internal Medicine; ATTEND Internal Medicine
PROC: 3E02329 Introduction of Other Anti-infective into Muscle, Percutaneous Approach (ICD-10-PCS; principal; 2024-06-01)
PROC: 3E03329 Introduction of Other Anti-infective into Peripheral Vein, Percutaneous Approach (ICD-10-PCS; 2024-06-01)
PROC: 3E0337Z Introduction of Electrolytic and Water Balance Substance into Peripheral Vein, Percutaneous Approach (ICD-10-PCS; 2024-06-01)
DX: I95.9 Hypotension, unspecified (principal); E87.1 Hypo-osmolality and hyponatremia; N39.0 Urinary tract infection, site not specified; N40.0 Benign prostatic hyperplasia without lower urinary tract symptoms; D75.839 Thrombocytosis, unspecified; F03.90 Unspecified dementia, unspecified severity, without behavioral disturbance, psychotic disturbance, mood disturbance, and anxiety; Z90.49 Acquired absence of other specified parts of digestive tract; M10.9 Gout, unspecified; N20.0 Calculus of kidney; M65.90 Unspecified synovitis and tenosynovitis, unspecified site; I73.9 Peripheral vascular disease, unspecified; R91.8 Other nonspecific abnormal finding of lung field; I10 Essential (primary) hypertension; Z85.028 Personal history of other malignant neoplasm of stomach; F10.21 Alcohol dependence, in remission; Z87.440 Personal history of urinary (tract) infections; E87.5 Hyperkalemia
CPT/HCPCS: 36415; 71045-TC-FY; 80048; 80053; 81003; 82533; 83735; 84100; 84484; 85025; 85027; 87086; 87186; 93005; 93010; 93306-TC; 96365; 96366; 96372; 99285-25; G0378